=== PATIENT | female | born 1995 | race Caucasian/White ===

== ENCOUNTER 2019-07-31 11:23 | Inpatient (IN) | payer SELFPAY ==
[2019-07-31] VITALS (7 sets, daily range): BP systolic 114–120; BP diastolic 62–83; PULSE 103–135; RESP 18–20; TEMP 36.8–38.5; O2SAT 97–100; BMI 20.9
--- NOTE | ~2019-07-31 | CT_ITS ---
EXAMINATION: CT abdomen pelvis w con DATE: 07/31/2019 13:05 INDICATION: Lower abdominal pain, low back pain. Nausea, vomiting, fever and chills TECHNIQUE: Computed tomography (CT) of the abdomen and pelvis was performed with 100 cc Omnipaque 350 intravenous contrast. Automated exposure control and iterative reconstruction technique were employe d. Exam dose: 211.73 mGy-cm total exam DLP. COMPARISON: None. FINDINGS: Probable calcified right and left lower lobe pulmonary granulomas. No infiltrate or consolidation in the lower lung zones. Normal heart size. No pericardial or pleural effusion. The liver, gallbladder, bile ducts, spleen, pancreas, pancreatic duct, and adrenal glands are unremar kable. There is patchy inhomogeneous contrast enhancement of the kidneys, particularly on the right, as well as right perinephric stranding and thickening of the right pararenal fascia suggesting possible pyel onephritis, primarily on the right. There is also some asymmetric thickening of the wall of the right renal pelvis and right ureter. Correlation with white blood cell count urinalysis is recommended. Normal caliber of the abdominal aorta. No intraperitoneal or retroperitoneal or pelvic mass lesion or adenopathy or ascites. The urinary bladder, uterus and adnexal areas appear unremarkable. There is a prominent amount of fecal material within the colon. No bowel obstruction or intraperitone al free air. Very small fat-containing umbilical hernia. L4 limbus vertebra. No suspicious osteolytic or osteoblastic lesions are noted. IMPRESSION: Bilateral pyelonephritis is suggested, primarily on the right Reviewed, dictated and finalized at [facility]. Reviewed, dictated and finalized at [facility].
--- NOTE | 2019-07-31 12:15 | ECG_ITS ---
Measurements Intervals [place] Rate: 103 P: 68 VA: 169 QRS: 91 QRSD: 100 T: 55 QT: 333 QTc: 437 Interpretive Statements SINUS TACHYCARDIA DELAYED PRECORDIAL R/S TRANSITION BORDERLINE T WAVE ABNORMALITY- ANTERIOR LEADS ABNORMAL ECG Electronically Signed On 07-31-2019 13:09:36 CDT by Arvind Painter D.O.
[2019-07-31 12:20] LABS: Add Urine Microscopic? YES; Appearance Urine Cloudy (Clear); Bilirubin Urine 1+ (Negative); Blood Urine 3+ (Negative); Color Urine Yellow (Yellow); Glucose Urine UA Negative (Negative); Ketones Urine Trace (Negative); Leukocyte Esterase Ur 2+ LEU/UL (Negative); Nitrate Urine Positive (Negative); Protein Urine 2+ (Negative); Specific Grav Ur >= 1.030 (1.010-1.020); Urobilinogen Urine 0.2 mg/dL (0.2-1.0)
[2019-07-31] MEDS: SODIUM CHLORIDE 0.9% IV 1,000 ML 999 ML IV CONT (12:23)
[2019-07-31 12:24] LABS: Pregnancy On Board Control Negative; Specific Gravity Ur > 1.030 (1.010-1.035); Urine Pregnancy Test Negative
[2019-07-31 12:26] LABS: Bacteria Urine 2+ /hpf; Mucus Urine Moderate /lpf; Squamous Epithelial Cell Urine Moderate /hpf (Few); WBC Urine 21-30 /hpf (0-3)
[2019-07-31] MEDS: MORPHINE SULFATE 2 MG/ML INJ IV PUSH ×3 (12:27→21:45)
[2019-07-31] MEDS: ONDANSETRON INJ 4 MG/2 ML VIAL IV PUSH ×2 (12:28→16:01)
[2019-07-31 12:36] LABS: Basophils Absolute Auto 0.03 K/mm3 (0.00-0.10); Basophils Percent Auto 0.2 % (0.0-1.0); Eosinophils Absolute Auto 0.01 K/mm3 (0.02-0.50); Eosinophils Percent Auto 0.1 % (1.0-6.0); Hemoglobin 12.7 g/dL (12.0-15.0); Immature Granulocyte Absolute 0.08 K/mm3 (0.00-0.00); Immature Granulocyte Percent A 0.5 % (0.0-0.0); Lymphocytes Absolute Auto 0.45 K/mm3 (1.10-4.50); Lymphocytes Percent Auto 2.7 % (18.0-42.0); Mean Corpuscular HGB Conc 33.4 g/dL (32.0-36.0); Mean Corpuscular Hemoglobin 29.9 pg (27.0-31.0); Mean Corpuscular Volume 89.4 fL (78.0-102.0); Monocytes Percent Auto 7.9 % (2.0-11.0); Neutrophils Absolute Auto 14.6 K/mm3 (1.7-7.2); Neutrophils Percent Auto 88.6 % (50.0-70.0); Platelet Count Result 229 K/mm3 (150-420); Red Blood Count 4.25 M/mm3 (4.20-5.40); Red Cell Distribution Width 13.2 % (11.6-14.4); White Blood Count 16.5 K/mm3 (4.8-10.8)
[2019-07-31 12:50] LABS: Alanine Aminotransferase 13 U/L (14-59); Albumin Level 3.3 g/dL (3.4-5.0); Alkaline Phosphatase 66 U/L (46-116); Aspartate Amino Transferase 14 U/L (15-37); Bilirubin,Total 0.6 mg/dL (0.00-1.00); Blood Urea Nitrogen 9 mg/dL (7-18); Calcium 8.4 mg/dL (8.5-10.1); Carbon Dioxide 23 mmol/L (21-32); Chloride 102 mmol/L (98-108); Estimated Glomerular Filt Rate > 60; Glucose 135 mg/dL (70-99); Lipase 48 U/L (73-393); Osmolality Calculated 284 mOsm/kg (285-295); Sodium 137 mmol/L (136-145); Total Protein 7.1 g/dL (6.4-8.2)
[2019-07-31 13:03] LABS: Lactic Acid Reflex 1.7 mmol/L (0.4-2.0)
[2019-07-31] MEDS: KETOROLAC 30 MG/ML VIAL (*BKC) IV PUSH (13:14)
[2019-07-31] MEDS: KCL 20 MEQ/SW 100 ML 100 ML 50 MEQ IVPB (13:14)
--- NOTE | 2019-07-31 13:19 | PC.NURSE ---
2ND LITER NS STARTED AND INFUSING WITH [facility]
--- NOTE | 2019-07-31 13:48 | PC.NURSE ---
OBDULIO PAUSED WHILE [facility]ICE
--- NOTE | 2019-07-31 14:18 | ED.ABDPAIN ---
HPI - Abdominal Pain General Chief Complaint: Abdominal Pain Stated Complaint: Pain back Pain R side up throuh Abd Constipated Source: patient Mode of arrival: ambulatory Limitations: no limitations History of Present Illness HPI narrative: This is a 23 year female that presents with some right lower quadrant pain and right flank pain with radiation into her suprapubic area with dysuria, currently no hematuria does have a low-grade fever and chills with nausea no vomiting no diarrhea constipation has a history of UTIs and has been having symptoms over the last couple of days which have got worse over the last few hours patient is diaphoretic vital signs are stable. MD elicited complaint: abdominal pain and flank pain Pertinent past history: past UTI Onset (ago): day(s) Pain Consistency: constant Location: RLQ, R flank and suprapubic Severity: severe Pain scale (0-10): 10 Quality: stabbing and dull Radiation: RLQ and R flank Migration to: RLQ and suprapubic Exacerbating factors: nothing Relieving factors: nothing Associated symptoms: nausea, fever and chills Related Data Home Medications Medication Instructions Recorded Confirmed No Home Medications 07/31/19 07/31/19 Allergies Allergy/AdvReac Type Severity Reaction Status Date / Time No Known Allergies Allergy Verified 07/31/19 13:03 Review of Systems Review of Systems: All systems reviewed & are unremarkable except as noted in HPI and below PMFSH Past Medical History Medical History UTI (urinary tract infection) Exam Const: General: no acute distress and alert Orientation/consciousness: patient oriented x3 HENMT: Head: normal to inspection Face and sinus: normal facial exam Eyes: Conjunctivae: conjunctivae normal Pupils: Equal, round and reactive pupils present Neck: Neck: normal visual inspection and no lymphadenopathy Chest: Chest palpation & inspection: normal inspection of the chest Resp: Effort & Inspection: normal respiratory effort Auscultation: clear to auscultation bilaterally Cardio: Rate: regular rate Rhythm: regular rhythm GI: GI Palp: Yes Soft to palpation and Yes Tenderness to palpation present (GI) Percussion: Yes normal to percussion : General: Yes bladder normal to palpation and Yes CVA tenderness Urinary Catheter: Urinary Catheter: patent and draining Back/Spine/Pelvis: Back: CVA tenderness Skin: General skin exam: normal color Rashes: no rashes Neuro: General: patient oriented x3 Extrem: General: normal to inspection Psych: Mental Status: mental status grossly normal Course Course Emergency Course: Reassessment of patient, after receiving Toradol patient is resting more comfortably currently pain level is reduced down to about a 3 to 4/10 currently no nausea or vomiting and flank pain has eased considerably patient appears and feels more comfortable. Vital Signs Vital signs: Vital Signs Temperature 37.4 C 07/31/19 12:16 Pulse Rate 135 H 07/31/19 12:16 Respiratory Rate 07/31/19 12:16 Blood Pressure 120/83 07/31/19 12:16 Pulse Oximetry 97 07/31/19 12:16 Temperature 37.4 C 07/31/19 12:16 Pulse Rate 106 H 07/31/19 13:19 Respiratory Rate 07/31/19 12:16 Blood Pressure 120/83 07/31/19 12:16 Pulse Oximetry 99 07/31/19 13:19 MDM - Abdominal Pain Lab Data Result diagrams: 07/31/19 12:31 07/31/19 12:31 Labs: Lab Results 07/31/19 07/31/19 07/31/19 Range/Units 12:08 12:08 12:31 WBC 16.5 H (4.8-10.8) K/mm3 RBC 4.25 (4.20-5.40) M/mm3 Hgb 12.7 (12.0-15.0) g/dL Hct 38.0 (35.0-49.0) % MCV 89.4 (78.0-102.0) fL MCH 29.9 (27.0-31.0) pg MCHC 33.4 (32.0-36.0) g/dL RDW 13.2 (11.6-14.4) % Plt Count 229 (150-420) K/mm3 MPV 11.0 (9.2-11.8) fl Immature Gran % (Auto) 0.5 H (0.0-0.0) % Neut % (Auto) 88.6 H (50.0-70.0) % Lymph %
--- NOTE | 2019-07-31 15:11 | PC.NURSE ---
Patient refused JAQUI cruz.
[2019-07-31] MEDS: SODIUM CHLORIDE 0.9% IV 1,000 ML 100 ML IV CONT ×2 (15:14→22:57)
[2019-07-31] MEDS: ACETAMINOPHEN 325 MG TABLET 650 MG PO ×2 (16:01→19:19)
--- NOTE | 2019-07-31 19:15 | PC.NURSE ---
pt vital signs obtained and found to have temp of 101.3, turning and beading machine operator notified and requested permission to give tylenol 45 min early
--- NOTE | 2019-07-31 19:48 | PC.NURSE ---
notified that patient was running a temp 101 and her next dose of Tylenol wasn't due for another 45 minutes. MD stated to go ahead and give the Tylenol now.
--- NOTE | 2019-07-31 20:15 | PC.NURSE ---
pt resting in bed watching tv, states she is not cold anymore and believes her fever has broke, temp of 99.6 now, denies any other needs at this time.
[2019-07-31] MEDS: TRAZODONE HCL 50 MG TABLET 25 MG PO (21:43)
--- NOTE | 2019-07-31 21:57 | PC.NURSE ---
pt resting in bed watching tv, reported pain in lower abd, medication given see MAR, denies any other needs at this time.
--- NOTE | 2019-07-31 22:27 | PC.NURSE ---
pt resting in bed talking on phone, reports improvement in pain, denies any needs at this time
[2019-08-01] VITALS (11 sets, daily range): BP systolic 92–115; BP diastolic 50–83; PULSE 82–116; RESP 18–20; TEMP 36.4–39.4; O2SAT 97–100
--- NOTE | 2019-08-01 01:52 | PC.NURSE ---
pt reports vomiting, medication given, temp obtained 103, charge coordinator aware, medication given
[2019-08-01] MEDS: ONDANSETRON INJ 4 MG/2 ML VIAL IV PUSH ×3 (01:53→18:06)
[2019-08-01] MEDS: ACETAMINOPHEN 325 MG TABLET 650 MG PO ×3 (02:01→18:07)
--- NOTE | 2019-08-01 03:18 | PC.NURSE ---
pt sleeping, respirations even and regular, no evidence of distress noted
--- NOTE | 2019-08-01 05:20 | PC.NURSE ---
pt resting in bed, no evidence of distress noted at this time.
[2019-08-01 05:43] LABS: Basophils Absolute Auto 0.03 K/mm3 (0.00-0.10); Basophils Percent Auto 0.2 % (0.0-1.0); Hematocrit 34.4 % (35.0-49.0); Hemoglobin 11.4 g/dL (12.0-15.0); Immature Granulocyte Absolute 0.15 K/mm3 (0.00-0.00); Lymphocytes Absolute Auto 0.73 K/mm3 (1.10-4.50); Lymphocytes Percent Auto 4.8 % (18.0-42.0); Mean Corpuscular HGB Conc 33.1 g/dL (32.0-36.0); Mean Corpuscular Hemoglobin 30.2 pg (27.0-31.0); Mean Platelet Volume 11.2 fl (9.2-11.8); Monocytes Absolute Auto 1.44 K/mm3 (0.10-0.90); Monocytes Percent Auto 9.5 % (2.0-11.0); Neutrophils Absolute Auto 12.8 K/mm3 (1.7-7.2); Neutrophils Percent Auto 84.5 % (50.0-70.0); Platelet Count Result 181 K/mm3 (150-420); Red Blood Count 3.78 M/mm3 (4.20-5.40); Red Cell Distribution Width 13.7 % (11.6-14.4); White Blood Count 15.2 K/mm3 (4.8-10.8)
[2019-08-01 05:59] LABS: Alanine Aminotransferase 16 U/L (14-59); Albumin Level 2.5 g/dL (3.4-5.0); Alkaline Phosphatase 60 U/L (46-116); Anion Gap 14.4 mmol/L (7-16); Aspartate Amino Transferase 14 U/L (15-37); Bilirubin,Total 0.5 mg/dL (0.00-1.00); Blood Urea Nitrogen 8 mg/dL (7-18); Calcium 7.6 mg/dL (8.5-10.1); Carbon Dioxide 23 mmol/L (21-32); Chloride 105 mmol/L (98-108); Estimated CRCL calculation 96 ml/min; Estimated Glomerular Filt Rate > 60; Glucose 117 mg/dL (70-99); Magnesium 1.4 mg/dL (1.8-2.4); Osmolality Calculated 287 mOsm/kg (285-295); Potassium 3.4 mmol/L (3.5-5.1); Sodium 139 mmol/L (136-145); Total Protein 5.9 g/dL (6.4-8.2)
[2019-08-01 06:02] LABS: Lactic Acid Reflex 1.2 mmol/L (0.4-2.0)
[2019-08-01] MEDS: MORPHINE SULFATE 2 MG/ML INJ IV PUSH ×4 (08:49→22:46)
[2019-08-01] MEDS: SODIUM CHLORIDE 0.9% IV 1,000 ML 100 ML IV CONT ×2 (08:58→20:06)
[2019-08-01] MEDS: MAGNESIUM SULF 2 GM/WATER 50ML 2 GM/50 ML BAG IVPB (09:18)
--- NOTE | 2019-08-01 10:43 | PM.IMHP ---
H&P: HPI History of Present Illness Chief complaint: pyelonephritis <VERO Pan - Last Filed: 08/01/19 11:21> Narrative: Shi Tovar is a 23 year old female that presented to the ED with right upper quadrant pain and right flank pain. Patient has a past medical history of UTI. According to the patient a couple of weeks ago she developed right flank pain which resolved with drinking plenty of water with cranberry juice. Two days ago she developed the same symptoms that worsen. According to patient yesterday her abdominal and flank pain was so bad that she could not walk she also reported a subjective fever with chills , nausea and a decreased appetite. She did not take anything at home for her symptoms. At that time she asked her mother to transport her to the ED. On admission her her vitals were 120/83, 135, 20, 99.4, 97% on room air. While in the ED a CT was completed which indicated pyelonephritis, she is receiving Rocephin for treatment. her UA indicated nitrates, leukocytes, bacteria, protein. UA cultures pending. her potassium and magnesium were below normal limits she did receive supplements. she is being admitted for pyelonephritis and urosepsis. she continues to have abdominal pain and right flank pain. she also complains of nausea and at this time her pain is not controlled. she had been instructed to attempt to take her pain medication regularly. Patient denies SOB, CP, palpitation, extremity numbness, lightheadness, dizziness, constipation, diarrhea. <VERO Pan - Last Filed: 08/01/19 11:21> Review of Systems Constitutional: Constitutional: Reports chills, Reports fever(s), Reports lethargy and Reports poor appetite <VERO Pan - Last Filed: 08/01/19 11:21> Cardiovascular: Cardiovascular: Reports as per HPI, Reports no additional cardiovascular complaints, Denies syncope, Denies dyspnea, Denies dyspnea on exertion and Denies paroxysmal nocturnal dyspnea <VERO Pan - Last Filed: 08/01/19 11:21> Respiratory: Respiratory: Reports as per HPI, Denies cough, Denies dyspnea and Denies dyspnea on exertion <VERO Pan - Last Filed: 08/01/19 11:21> Gastrointestinal: Gastrointestinal: Reports as per HPI, Reports abdominal pain, Denies constipation, Denies diarrhea, Reports nausea and Denies vomiting <VERO Pan - Last Filed: 08/01/19 11:21> Genitourinary: Genitourinary: Denies hematuria, Reports dysuria, Reports pelvic pain, Denies urinary urgency and Denies vaginal pruritus <KIKE Pan - Last Filed: 08/01/19 11:21> Musculoskeletal: Musculoskeletal: Reports no additional musculoskeletal complaints, Denies muscle weakness, Denies numbness and Denies tingling <DHAVAL Pan - Last Filed: 08/01/19 11:21> Integumentary/Breasts: Skin/Breast: Reports system reviewed and no additional complaints, except as docu and Reports as per HPI <DHAVAL Pan - Last Filed: 08/01/19 11:21> Neurologic: Reports system reviewed and no additional complaints, except as documented, Reports as per HPI, Denies confusion, Denies vertigo, Denies dizziness and Denies syncope <[facility] - Last Filed: 08/01/19 11:21> Psychiatric: Psychiatric: Reports no additional psychiatric complaints, Reports anxiety ( due to pain) and Reports change in appetite ( decreased appetite) <KIKE Pan - Last Filed: 08/01/19 11:21> Endocrine: Endocrine: Reports fatigue <KIKE Pan - Last Filed: 08/01/19 11:21> Hematologic/Lymphatic: Hematologic/Lymphatic: Reports no additional hematologic/lymphatic complaints <KIKE Pan - Last Filed: 08/01/19 11:21> Allergic/Immunologic: Allergic/Immunologic: Reports no additional allergic/immunologic complaints <KIKE Pan - Last Filed: 08/01/19 11:21> PMF Past Medical History Medical History: Medical History (Reviewed 07/31/19 @ 14:2
[2019-08-01] MEDS: POTASSIUM CHLORIDE 20 MEQ PACKET (FOR LIQUID) 40 MEQ PO (10:48)
[2019-08-01] MEDS: IBUPROFEN 200 MG TABLET PO ×2 (11:36→21:19)
[2019-08-01] MEDS: TEMAZEPAM 15 MG CAPSULE PO (21:19)
--- NOTE | 2019-08-01 21:19 | PC.NURSE ---
Given Restoril 15mg po for complaints of insomnia and Ibuprofen 200mg po for complaints of migraine. Given popscicle to prevent nausea. Patient declined other food. Given Floor [employer] per request for use [employer].
--- NOTE | 2019-08-01 22:33 | PC.NURSE ---
States pain is coming back points to epigastric area, states radiates down to stomach, describes pain as mild pressure, tender to touch, and a 7 . Using cell phone, flacc score of 0
--- NOTE | 2019-08-01 23:16 | PC.NURSE ---
Boyfriend brought in belongings and given to patient.
--- NOTE | 2019-08-02 01:00 | PC.NURSE ---
Watching T.V.; no signs of pain or discomfort.
--- NOTE | 2019-08-02 02:15 | PC.NURSE ---
Sleeping at intervals; no signs of discomfort. No distress noted.
[2019-08-02 03:30] VITALS: BP 113/80; PULSE 76; RESP 20; TEMP 36.6; O2SAT 97
[2019-08-02 03:38] VITALS: BP 113/80; PULSE 76; RESP 20; TEMP 36.6; O2SAT 97
[2019-08-02] MEDS: MORPHINE SULFATE 2 MG/ML INJ IV PUSH (04:51)
--- NOTE | 2019-08-02 05:06 | PC.NURSE ---
Patient moaning, grimacing and thrashing around in bed, complains of pain of 8.5:Requesting Morphine and Zofran because she is also nauseated. MS 2mg IVP given for severe pain @0451; returned to room @0505, patient sleeping with no signs of pain, distress or nausea. Zofran held
[2019-08-02 05:43] LABS: Basophils Absolute Auto 0.02 K/mm3 (0.00-0.10); Basophils Percent Auto 0.2 % (0.0-1.0); Eosinophils Absolute Auto 0.07 K/mm3 (0.02-0.50); Eosinophils Percent Auto 0.8 % (1.0-6.0); Hematocrit 34.5 % (35.0-49.0); Hemoglobin 11.3 g/dL (12.0-15.0); Immature Granulocyte Absolute 0.05 K/mm3 (0.00-0.00); Immature Granulocyte Percent A 0.6 % (0.0-0.0); Lymphocytes Absolute Auto 1.28 K/mm3 (1.10-4.50); Lymphocytes Percent Auto 14.4 % (18.0-42.0); Mean Corpuscular HGB Conc 32.8 g/dL (32.0-36.0); Mean Corpuscular Hemoglobin 29.7 pg (27.0-31.0); Mean Corpuscular Volume 90.8 fL (78.0-102.0); Mean Platelet Volume 11.4 fl (9.2-11.8); Monocytes Absolute Auto 0.84 K/mm3 (0.10-0.90); Monocytes Percent Auto 9.5 % (2.0-11.0); Neutrophils Absolute Auto 6.6 K/mm3 (1.7-7.2); Neutrophils Percent Auto 74.5 % (50.0-70.0); Platelet Count Result 160 K/mm3 (150-420); Red Cell Distribution Width 13.9 % (11.6-14.4); White Blood Count 8.9 K/mm3 (4.8-10.8)
[2019-08-02] MEDS: SODIUM CHLORIDE 0.9% IV 1,000 ML 100 ML IV CONT (05:48)
[2019-08-02] MEDS: ONDANSETRON INJ 4 MG/2 ML VIAL IV PUSH (05:49)
[2019-08-02 05:58] LABS: Alanine Aminotransferase 20 U/L (14-59); Albumin Level 2.4 g/dL (3.4-5.0); Alkaline Phosphatase 65 U/L (46-116); Anion Gap 14.6 mmol/L (7-16); Aspartate Amino Transferase 18 U/L (15-37); Bilirubin,Total 0.4 mg/dL (0.00-1.00); Blood Urea Nitrogen 7 mg/dL (7-18); Calcium 7.7 mg/dL (8.5-10.1); Carbon Dioxide 24 mmol/L (21-32); Chloride 106 mmol/L (98-108); Estimated CRCL calculation 116 ml/min; Estimated Glomerular Filt Rate > 60; Glucose 89 mg/dL (70-99); Magnesium 1.7 mg/dL (1.8-2.4); Osmolality Calculated 289 mOsm/kg (285-295); Potassium 3.6 mmol/L (3.5-5.1); Sodium 141 mmol/L (136-145); Total Protein 5.8 g/dL (6.4-8.2)
[2019-08-02 06:01] LABS: Lactic Acid 0.8 mmol/L (0.4-2.0)
[2019-08-02 07:40] VITALS: BP 120/72; PULSE 109; RESP 18; TEMP 38.4; O2SAT 97
[2019-08-02 07:51] VITALS: TEMP 38.4
[2019-08-02] MEDS: ACETAMINOPHEN 325 MG TABLET 650 MG PO (07:51)
[2019-08-02 09:00] VITALS: TEMP 37
[2019-08-02] MEDS: MAGNESIUM SULF 2 GM/WATER 50ML 2 GM/50 ML BAG IVPB (09:42)
--- NOTE | 2019-08-02 11:25 | PC.NURSE ---
Patient resting quietly in bed. Denies any pain or needs at this time. Call light at side.
[2019-08-02 12:00] VITALS: BP 121/76; PULSE 82; RESP 16; TEMP 37.3; O2SAT 99
--- NOTE | 2019-08-02 12:09 | P.DS_ITS ---
DS: Admitting Diagnosis Admitting Diagnosis Admitting Diagnosis: Tubulo-interstitial nephritis, not specified as acute or chronic <[facility] - Last Filed: 08/02/19 14:18> DS: Discharge Diagnosis Discharge Diagnosis (1) Pyelonephritis: Code(s): N12 - Tubulo-interstitial nephritis, not specified as acute or chronic <Tomd[facility]DARREL [facility] - Last Filed: 08/02/19 14:18> Status: Acute <Luís LangDARREL [facility] - Last Filed: 08/02/19 14:18> Assessment and Plan: * secondary to untreated UTI * CT indicates pyelonephritis * urinalysis with nitrate, protein, leukocyte esterase, bacteria * receive 1 more dose of Rocephin before discharge * continue Tylenol and ibuprofen for temperature * continue pain medication on discharge as needed * UA culture with growth of E coli. sensitive to levofloxacin * he will discharged with levofloxacin 750 mg daily for 7 days . patient could not afford levofloxacin will start her on Cipro 500 mg b.i.d. for 7 days * WBCs within normal limits <Tomdanna RickeyDez Mendoza [facility] - Last Filed: 08/02/19 14:18> (2) UTI (urinary tract infection): Qualifiers: Urinary tract infection type: acute pyelonephritis Qualified Code(s): N10 - Acute pyelonephritis <Luís [facility]DARREL [facility] - Last Filed: 08/02/19 14:18> Code(s): N39.0 - Urinary tract infection, site not specified <Tomdanna Mendoza [facility] - Last Filed: 08/02/19 14:18> Status: Acute <Luís Mendoza [facility] - Last Filed: 08/02/19 14:18> Assessment and Plan: secondary to untreated UTI * CT indicates pyelonephritis * urinalysis with nitrate, protein, leukocyte esterase, bacteria * receive 1 more dose of Rocephin before discharge * continue Tylenol and ibuprofen for temperature * continue pain medication on discharge as needed * UA culture with growth of E coli. sensitive to levofloxacin.patient could not afford levofloxacin will start her on Cipro 500 mg b.i.d. for 7 days * he will discharged with levofloxacin 750 mg daily for 7 days * WBCs within normal limits <VERO Pan - Last Filed: 08/02/19 14:18> (3) Sepsis: Code(s): A41.9 - Sepsis, unspecified organism <VERO Pan - Last Filed: 08/02/19 14:18> Status: Acute <VERO Pan - Last Filed: 08/02/19 14:18> Assessment and Plan: * resolved * as evidence of hypotensive tachycardia and febrile * secondary to pyelonephritis * antibiotics started blood culture not collected <Luís Mendoza VERO - Last Filed: 08/02/19 14:18> (4) Nausea: Code(s): R11.0 - Nausea <Luís Mendoza VERO - Last Filed: 08/02/19 14:1 8> Status: Acute <Luís Mendoza VERO - Last Filed: 08/02/19 14:18> Assessment and Plan: * resolved * secondary to infection * continue Zofran on discharge <VERO Pan - Last Filed: 08/02/19 14:18> (5) Electrolyte imbalance: Code(s): E87.8 - Other disorders of electrolyte and fluid balance, not elsewhere classified <Luís Mendoza VERO - Last Filed: 08/02/19 14:18> Status: Acute <Luís Mendoza VERO - Last Filed: 08/02/19 14:18> Assessment and Plan: * magnesium below normal limits will be given supplement before david garnica * will give patient week ago magnesium on discharge and will follow-up with PCP afterwards <Luís LangDez Reji [facility] - Last Filed: 08/02/19 14:18> DS: Summary Hospital Course Hospital Course: H&P from 07/31 Narrative:
--- NOTE | 2019-08-02 12:09 | PM.DS ---
DS: Admitting Diagnosis Admitting Diagnosis Admitting Diagnosis: Tubulo-interstitial nephritis, not specified as acute or chronic <VERO Pan - Last Filed: 08/02/19 14:18> DS: Discharge Diagnosis Discharge Diagnosis (1) Pyelonephritis: Code(s): N12 - Tubulo-interstitial nephritis, not specified as acute or chronic <DHAVAL Pan - Last Filed: 08/02/19 14:18> Status: Acute <VERO Pan - Last Filed: 08/02/19 14:18> Assessment and Plan: secondary to untreated UTI CT indicates pyelonephritis urinalysis with nitrate, protein, leukocyte esterase, bacteria receive 1 more dose of Rocephin before discharge continue Tylenol and ibuprofen for temperature continue pain medication on discharge as needed UA culture with growth of E coli. sensitive to levofloxacin he will discharged with levofloxacin 750 mg daily for 7 days . patient could not afford levofloxacin will start her on Cipro 500 mg b.i.d. for 7 days WBCs within normal limits <DHAVAL Pan - Last Filed: 08/02/19 14:18> (2) UTI (urinary tract infection): Qualifiers: Urinary tract infection type: acute pyelonephritis Qualified Code(s): N10 - Acute pyelonephritis <DHAVAL Pan - Last Filed: 08/02/19 14:18> Code(s): N39.0 - Urinary tract infection, site not specified <VERO Pan - Last Filed: 08/02/19 14:18> Status: Acute <DHAVAL Pan - Last Filed: 08/02/19 14:18> Assessment and Plan: secondary to untreated UTI CT indicates pyelonephritis urinalysis with nitrate, protein, leukocyte esterase, bacteria receive 1 more dose of Rocephin before discharge continue Tylenol and ibuprofen for temperature continue pain medication on discharge as needed UA culture with growth of E coli. sensitive to levofloxacin.patient could not afford levofloxacin will start her on Cipro 500 mg b.i.d. for 7 days he will discharged with levofloxacin 750 mg daily for 7 days WBCs within normal limits <DHAVAL Pan - Last Filed: 08/02/19 14:18> (3) Sepsis: Code(s): A41.9 - Sepsis, unspecified organism <VERO Pan - Last Filed: 08/02/19 14:18> Status: Acute <VERO Pan - Last Filed: 08/02/19 14:18> Assessment and Plan: resolved as evidence of hypotensive tachycardia and febrile secondary to pyelonephritis antibiotics started blood culture not collected <VERO Pan - Last Filed: 08/02/19 14:18> (4) Nausea: Code(s): R11.0 - Nausea <VERO Pan - Last Filed: 08/02/19 14:18> Status: Acute <VERO Pan - Last Filed: 08/02/19 14:18> Assessment and Plan: resolved secondary to infection continue Zofran on discharge <VERO Pan - Last Filed: 08/02/19 14:18> (5) Electrolyte imbalance: Code(s): E87.8 - Other disorders of electrolyte and fluid balance, not elsewhere classified <VERO Pan - Last Filed: 08/02/19 14:18> Status: Acute <VERO Pan - Last Filed: 08/02/19 14:18> Assessment and Plan: magnesium below normal limits will be given supplement before discharge will give patient week ago magnesium on discharge and will follow-up with PCP afterwards <VERO Pan - Last Filed: 08/02/19 14:18> DS: Summary Hospital Course Hospital Course: H&P from 07/31 Narrative: Shi Tovar is a 23 year old female that presented to the ED with right upper quadrant pain and right flank pain. Patient has a past medical history of UTI. According to the patient a couple of weeks ago she developed right flank pain which resolved with drinking plenty of water with cranberry juice. Two days ago she developed the same symptoms that worsen. Ac
--- NOTE | 2019-08-02 14:20 | PC.NURSE ---
Patient sitting up in bed, dressed. Waiting for friend to pick her up. All bellongings gathered together. Reports no need at this time. Denies any pain.
--- NOTE | 2019-08-02 15:15 | PC.NURSE ---
Patients friend here to transport her home. All discharge instructions and education reviewed. Denies any questions. All belongings gathered and sent home with patient. This nurse accompanied patient to front door. Patient left via private vehicle with friend.
== END 2019-08-02 15:15 | disposition home or self-care (01) | DRG 720 ==
LOC: CHSED 14:32 → CHS2ND 14:33
PROVIDERS: Nurse Practitioner; Admitting Provider Emergency Medicine; Emergency Provider Emergency Medicine; Visit Provider Emergency Medicine
DX: A41.9 Sepsis, unspecified organism (principal); N10 Acute pyelonephritis; N39.0 Urinary tract infection, site not specified; E87.8 Other disorders of electrolyte and fluid balance, not elsewhere classified
CPT/HCPCS: 36415; 74177; 80053; 81001; 81025; 83605; 83690; 83735; 85025; 87077; 87086; 87088; 87186; 93005; 96361; 96365; 96366; 96375; 96376; 99284; 99285; A9270; G0378; G0379; J0696; J1885; J2270; J2405; J3475; J3480; J7030; Q9965

== ENCOUNTER 2020-09-20 16:05 | Emergency (ER) | payer SELFPAY ==
--- NOTE | 2020-09-20 16:10 | ED.URI ---
HPI - URI/Sore Throat General Chief Complaint: Unspecified Stated Complaint: possible strep Source: patient and RN notes reviewed Mode of arrival: ambulatory Limitations: no limitations History of Present Illness MD elicited complaint: fever and sore throat Onset (ago): day(s) (2) Consistency: constant Severity: moderate Able to tolerate fluids by mouth: Yes Exacerbating factors: swallowing Relieving factors: nothing Associated symptoms: fever and chills Treatments prior to arrival: none Related Data Home Medications Medication Instructions Recorded Confirmed No Home Medications 09/20/20 09/20/20 Allergies Allergy/AdvReac Type Severity Reaction Status Date / Time No Known Allergies Allergy Verified 07/31/19 13:03 Review of Systems Review of Systems: All systems reviewed & are unremarkable except as noted in HPI and below PMFSH Past Medical History Medical History (Updated 09/20/20 @ 16:45 by Jeremy Dominguez MD) UTI (urinary tract infection) Surgical History Surgical History (Updated 09/20/20 @ 16:20 by Jeremy Dominguez MD) No pertinent past surgical history Social History Social History Smoking status: Never smoker Alcohol intake: former Substance use: current Substance use type: marijuana Gender identity (if verbalized by the patient): Female Spiritual care concerns: No Exam Const: General: healthy appearing and no acute distress Nutritional Appearance: well nourished Orientation/consciousness: patient oriented x3 Other: Female nurse in room during examination. HENMT: Head: normal to inspection Ears: external ears normal General nose exam: Normal external nose present Face and sinus: normal facial exam Mouth: Yes moist mucous membranes and Yes Abnormal oral and palatal mucosa present erythematous, edematous and white patches Throat: uvula midline Discharge Plan Discharge Clinical Impression: Pharyngitis Qualifiers: Pharyngitis/tonsillitis etiology: unspecified etiology Qualified Code(s): J02.9 - Acute pharyngitis, unspecified Patient Disposition: Home, Self-Care Condition: Stable Instructions: Pharyngitis (ED) Additional Instructions: use Tylenol and/or Motrin to control fever. If there is a positive result for the additional test you will be notified. Prescriptions: No Action No Home Medications RF: 0 Follow-up/Referrals: UNKNOWN,DOCTOR [Primary Care Provider] - Time of Disposition: 16:44
[2020-09-20 16:22] VITALS: BP 110/60; PULSE 62; RESP 16; TEMP 36.6; O2SAT 98
[2020-09-20 16:52] VITALS: BP 108/60; PULSE 92; RESP 16; TEMP 36.4; O2SAT 98
== END 2020-09-20 16:53 | disposition home or self-care (01) ==
PROVIDERS: Emergency Provider Emergency Medicine
DX: J02.9 Acute pharyngitis, unspecified (principal)
CPT/HCPCS: 87081; 87880; 99282; 99283

== ENCOUNTER 2021-02-11 11:58 | Emergency (ER) | payer SELFPAY ==
--- NOTE | ~2021-02-11 | US_ITS ---
EXAMINATION: US OB <= 14 weeks fetus EXAM DATE: 02/11/2021 14:49 INDICATION: Threatened . 1st trimester. TECHNIQUE: Pelvic obstetrical transabdominal sonogram was performed by a technologist. There are mu ltiple grayscale and Doppler images available for interpretation. There are no earlier studies of th is gestation for comparison. FINDINGS: Uterus measures 9.5 x 7.2 x 8.3 cm. There is intrauterine gestation sac. There is a somewh at focal heterogeneous Cristiano region with smaller anechoic region centrally which could be an abno rmally shaped gestation sac. This region measures 3.7 x 2.1 x 4.5 cm. No viable pole is identif ied. Possible missed . The ovaries are morphologically normal. IMPRESSION: Heterogeneous endometrial region which could be missed . No viable miguel ntified. Consider one week follow-up ultrasound. Reviewed, dictated and finalized at location [facility]. [facility] IMPRESSION: Heterogeneous endometrial region which could be missed . N o viable identified. Consider one week follow-up ultrasound.
[2021-02-11 12:12] VITALS: BP 132/97; PULSE 86; RESP 16; TEMP 36.8; O2SAT 100
--- NOTE | 2021-02-11 12:24 | ED.PREGNANCY ---
HPI - General Chief complaint: OB/Uterine Contractions Stated complaint: vaginal bleeding + preg test, not bleeding now Time Seen by Provider: 02/11/21 12:25 Source: patient Mode of arrival: ambulatory Limitations: no limitations History of Present Illness HPI Narrative: 25-year-old female 8 weeks with LMP on 12/16/2020 presents to the ER -- 1 episode of vaginal bleeding this morning. The patient had an average size vaginal tampoon worth of bleeding. Subsequently she has not had any bleeding. No abdominal pain. -- Nausea. Onset (ago): minute(s) ( She had vaginal bleeding 1 episode when she got up this morning. No further bleeding.) Exacerbating factors: none Associated symptoms: nausea Related Data Home Medications Medication Instructions Recorded Confirmed No Home Medications 09/20/20 02/11/21 Allergies Allergy/AdvReac Type Severity Reaction Status Date / Time No Known Allergies Allergy Verified 02/11/21 12:20 Review of Systems Review of Systems: All systems reviewed & are unremarkable except as noted in HPI and below Constitutional: Constitutional: Reports as per HPI and Reports no additional constitutional complaints Eyes: Eyes: Reports as per HPI and Reports no additional eye complaints ENT: Reports system reviewed and no additional complaints, except as documented Cardiovascular: Cardiovascular: Reports as per HPI and Reports no additional cardiovascular complaints Respiratory: Respiratory: Reports as per HPI and Reports no additional respiratory complaints Gastrointestinal: Gastrointestinal: Reports as per HPI and Reports no additional gastrointestinal complaints Genitourinary: Genitourinary: Reports abnormal vaginal bleeding Comments: Vaginal bleeding in an 8 week patient. no abdominal pain. Musculoskeletal: Musculoskeletal: Reports no additional musculoskeletal complaints Integumentary/Breasts: Skin/Breast: Reports system reviewed and no additional complaints, except as docu Neurologic: Reports system reviewed and no additional complaints, except as documented Psychiatric: Psychiatric: Reports no additional psychiatric complaints Endocrine: Endocrine: Reports no additional endocrine complaints Hematologic/Lymphatic: Hematologic/Lymphatic: Reports no additional hematologic/lymphatic complaints Allergic/Immunologic: Allergic/Immunologic: Reports no additional allergic/immunologic complaints FOR[facility] Past Medical History Medical History UTI (urinary tract infection) Surgical History Surgical History No pertinent past surgical history Social History Social History Smoking status: Never smoker Alcohol intake: former Substance use: current Substance use type: marijuana Gender identity (if verbalized by the patient): Female Spiritual care concerns: No Exam Const: General: cooperative, healthy appearing, comfortable and anxious HENMT: Head: normal to inspection and No palpable skull fracture present Ears: hearing grossly normal bilaterally General nose exam: Normal external nose present and Normal nares present Face and sinus: normal facial exam Mouth: Yes Normal oral and palatal mucosa present Teeth and gingiva: dentition normal Throat: posterior oropharynx normal Eyes: General: appearance normal, both eyes and all related structures Visual Wiggins: normal visual wiggins by confrontation Pupils: Equal, round and reactive pupils present EOM: EOMs intact bilaterally Neck: Neck: normal visual inspection Thyroid: thyroid normal Chest: Chest palpation & inspection: normal inspection of the chest Resp: Effort & Inspection: normal respiratory effort and able to speak in complete sentences Auscultation: clear to auscultation bilaterally Cardio: Jugular venous distension: no JV
[2021-02-11 12:51] LABS: Appearance Urine Clear (Clear); Bilirubin Urine Negative (Negative); Color Urine Yellow (Yellow); Glucose Urine UA Negative (Negative); Ketones Urine Trace (Negative); Leukocyte Esterase Ur Trace (Negative); Nitrate Urine Negative (Negative); Protein Urine Negative (Negative); Urobilinogen Urine 0.2 mg/dL (0.2-1.0)
[2021-02-11 12:54] LABS: Basophils Absolute Auto 0.05 K/mm3 (0.00-0.10); Basophils Percent Auto 0.5 % (0.0-1.0); Eosinophils Absolute Auto 0.03 K/mm3 (0.02-0.50); Eosinophils Percent Auto 0.3 % (1.0-6.0); Hematocrit 42.2 % (35.0-49.0); Hemoglobin 14.2 g/dL (12.0-15.0); Immature Granulocyte Absolute 0.02 K/mm3 (0.00-0.00); Immature Granulocyte Percent A 0.2 % (0.0-0.0); Lymphocytes Absolute Auto 1.14 K/mm3 (1.10-4.50); Lymphocytes Percent Auto 11.9 % (18.0-42.0); Mean Corpuscular HGB Conc 33.6 g/dL (32.0-36.0); Mean Corpuscular Hemoglobin 30.8 pg (27.0-31.0); Mean Corpuscular Volume 91.5 fL (78.0-102.0); Mean Platelet Volume 11.2 fl (9.2-11.8); Monocytes Percent Auto 6.3 % (2.0-11.0); Neutrophils Absolute Auto 7.8 K/mm3 (1.7-7.2); Neutrophils Percent Auto 80.8 % (50.0-70.0); Platelet Count Result 252 K/mm3 (150-420); Red Blood Count 4.61 M/mm3 (4.20-5.40); Red Cell Distribution Width 12.5 % (11.6-14.4); White Blood Count 9.6 K/mm3 (4.8-10.8)
[2021-02-11 13:11] LABS: Add Urine Microscopic? YES; Bacteria Urine Trace /hpf; Blood Urine Trace-Intact (Negative); RBC Urine 0-2 /hpf (0-2); Squamous Epithelial Cell Urine Rare /hpf (Few); WBC Urine 0-3 /hpf (0-3)
[2021-02-11 13:33] LABS: Alanine Aminotransferase 17 U/L (14-59); Albumin Level 3.7 g/dL (3.4-5.0); Alkaline Phosphatase 50 U/L (46-116); Anion Gap 13 mmol/L (8-16); Aspartate Amino Transferase 18 U/L (15-37); Bilirubin,Total 0.4 mg/dL (0.00-1.00); Blood Urea Nitrogen 11 mg/dL (7-18); Calcium 8.9 mg/dL (8.5-10.1); Carbon Dioxide 23 mmol/L (21-32); Chloride 102 mmol/L (98-108); Estimated CRCL calculation 106 ml/min; Estimated Glomerular Filt Rate > 60; Glucose 93 mg/dL (70-99); Osmolality Calculated 285 mOsm/kg (285-295); Potassium 3.8 mmol/L (3.5-5.1); Sodium 138 mmol/L (136-145); Total Protein 7.5 g/dL (6.4-8.2)
[2021-02-11 14:01] VITALS: BP 124/77; PULSE 80; RESP 16; O2SAT 99
[2021-02-11 15:15] VITALS: BP 121/78; PULSE 90; RESP 16; O2SAT 99
== END 2021-02-11 15:28 | disposition home or self-care (01) ==
PROVIDERS: Emergency Provider Internal Medicine Critical Care Medicine
DX: O20.0 Threatened abortion (principal)
CPT/HCPCS: 36415; 76801; 80053; 81001; 84702; 85025; 86900; 86901; 99282; 99284

== ENCOUNTER 2021-08-29 17:07 | Emergency (ER) | payer OTHER, SELFPAY ==
[2021-08-29] VITALS (13 sets, daily range): BP systolic 112–125; BP diastolic 56–76; PULSE 77–127; RESP 18–24; TEMP 36.6–36.8; O2SAT 96–100
--- NOTE | 2021-08-29 17:28 | ED.ANXIETY ---
HPI - Anxiety General Chief Complaint: Unspecified Stated Complaint: upper back pain, chest pain, panic attack, vomitin Time Seen by Provider: 08/29/21 17:28 Source: patient and RN notes reviewed Mode of arrival: ambulatory Limitations: no limitations History of Present Illness complaint: anxiety Onset (ago): hour(s) (3.5) Symptoms: extremity numbness/tingling and muscle cramps Severity: severe Quality: constant Place: home History of similar episodes: Yes Provoking factors: emotional stress Relieving factors: nothing Associated symptoms: chest pain, shortness of breath, palpitations and nausea/vomiting Related Data Allergies Allergy/AdvReac Type Severity Reaction Status Date / Time No Known Allergies Allergy Verified 08/29/21 17:36 Review of Systems Constitutional: Constitutional: Reports chills Respiratory: Respiratory: Reports cough Genitourinary: Genitourinary: Reports nocturia and Reports dysuria PMFSH Past Medical History Medical History UTI (urinary tract infection) Surgical History Surgical History No pertinent past surgical history Social History Social History Smoking status: Never smoker Alcohol intake: former Substance use: current Substance use type: marijuana Gender identity (if verbalized by the patient): Female Spiritual care concerns: No Exam Const: General: no acute distress and ill appearing acutely Nutritional Appearance: well nourished Orientation/consciousness: patient oriented x3 Limitations: no limitations HENMT: Head: normal to inspection Ears: external ears normal General nose exam: Normal external nose present Face and sinus: normal facial exam Eyes: Conjunctivae: conjunctivae normal Pupils: Equal, round and reactive pupils present EOM: EOMs intact bilaterally Neck: Neck: normal visual inspection Resp: Effort & Inspection: normal respiratory effort Auscultation: clear to auscultation bilaterally Cardio: Rate: tachycardic Rhythm: regular rhythm GI: GI Palp: Yes Soft to palpation and No Tenderness to palpation present (GI) Auscultation: normal bowel sounds Back/Spine/Pelvis: Cervical Spine: cervical ROM normal Thoracic/Lumbar Spine: thoraco-lumbar ROM normal Skin: General skin exam: normal color Rashes: no rashes Wounds: no wounds Neuro: General: patient oriented x3, moves all extremities, no focal motor deficits and CN's II-XI intact bilaterally Speech: normal speech Gait exam (Neuro): Normal gait present Extrem: General: normal to inspection and no clubbing, cyanosis or edema Psych: Appearance: grossly normal Mental Status: mental status grossly normal Affect: Anxious affect present Attitude: cooperative Thought process: Normal thought process present Thought content: Yes Normal thought content present Course Vital Signs Vital signs: Vital Signs Temperature 36.8 C 08/29/21 17:31 Pulse Rate 123 H 08/29/21 17:31 Respiratory Rate 23 H 08/29/21 17:31 Blood Pressure 119/76 08/29/21 17:31 Pulse Oximetry 100 08/29/21 17:31 Oxygen Delivery Room Air 08/29/21 17:31 Temperature 36.6 C 08/29/21 19:44 Pulse Rate 77 08/29/21 19:44 Respiratory Rate 18 08/29/21 19:44 Blood Pressure 113/56 L 08/29/21 19:44 Pulse Oximetry 97 08/29/21 19:44 Oxygen Delivery Room Air 08/29/21 19:01 MDM - Anxiety Lab Data Result diagrams: 08/29/21 17:52 08/29/21 17:52 Labs: Lab Results 08/29/21 08/29/21 08/29/21 Range/Units 17:52 17:52 17:52 WBC 9.8 (4.8-10.8) K/mm3 RBC 4.93 (4.20-5.40) M/mm3 Hgb 15.2 H (12.0-15.0) g/dL Hct 45.4 (35.0-49.0) % MCV 92.1 (78.0-102.0) fL MCH 30.8 (27.0-31.0) pg MCHC 33.5 (32.0-36.0) g/dL RDW 13.2 (11.6-14.4) % Plt Count 270 (150-420) K/mm3 MPV 1
[2021-08-29 17:56] LABS: Basophils Absolute Auto 0.04 K/mm3 (0.00-0.10); Basophils Percent Auto 0.4 % (0.0-1.0); Eosinophils Absolute Auto 0.02 K/mm3 (0.02-0.50); Eosinophils Percent Auto 0.2 % (1.0-6.0); Hematocrit 45.4 % (35.0-49.0); Hemoglobin 15.2 g/dL (12.0-15.0); Immature Granulocyte Absolute 0.04 K/mm3 (0.00-0.00); Immature Granulocyte Percent A 0.4 % (0.0-0.0); Lymphocytes Absolute Auto 0.25 K/mm3 (1.10-4.50); Lymphocytes Percent Auto 2.6 % (18.0-42.0); Mean Corpuscular HGB Conc 33.5 g/dL (32.0-36.0); Mean Corpuscular Hemoglobin 30.8 pg (27.0-31.0); Mean Corpuscular Volume 92.1 fL (78.0-102.0); Mean Platelet Volume 10.7 fl (9.2-11.8); Monocytes Absolute Auto 0.37 K/mm3 (0.10-0.90); Monocytes Percent Auto 3.8 % (2.0-11.0); Neutrophils Absolute Auto 9.1 K/mm3 (1.7-7.2); Neutrophils Percent Auto 92.6 % (50.0-70.0); Platelet Count Result 270 K/mm3 (150-420); Red Blood Count 4.93 M/mm3 (4.20-5.40); Red Cell Distribution Width 13.2 % (11.6-14.4); White Blood Count 9.8 K/mm3 (4.8-10.8)
[2021-08-29 18:01] LABS: Add Urine Microscopic? YES; Appearance Urine Clear (Clear); Bilirubin Urine Negative (Negative); Blood Urine Negative (Negative); Color Urine Yellow (Yellow); Glucose Urine UA Negative (Negative); Ketones Urine 2+ (Negative); Leukocyte Esterase Ur Negative LEU/UL (Negative); Nitrate Urine Negative (Negative); Protein Urine Negative (Negative); Urobilinogen Urine 0.2 mg/dL (0.2-1.0); pH Urine 8.5 (5.0-8.0)
[2021-08-29 18:03] LABS: Amphetamine Screen Urine Negative (Negative); Barbiturate Screen Urine Negative (Negative); Benzodiazepines Screen Urine Negative (Negative); Cannabinoid Screen Urine Positive (Negative); Cocaine Screen Urine Negative (Negative); Methadone Screen Urine Negative (Negative); Opiate Screen Urine Negative (Negative); Phencyclidine Screen Urine Negative (Negative)
[2021-08-29 18:08] LABS: Bacteria Urine Trace /hpf; RBC Urine 0-2 /hpf (0-2); Squamous Epithelial Cell Urine Moderate /hpf (Few)
[2021-08-29 18:10] LABS: Alanine Aminotransferase 23 U/L (14-59); Albumin Level 4.2 g/dL (3.4-5.0); Alkaline Phosphatase 64 U/L (46-116); Anion Gap 12 mmol/L (8-16); Aspartate Amino Transferase 20 U/L (15-37); Bilirubin,Total 1.3 mg/dL (0.00-1.00); Blood Urea Nitrogen 12 mg/dL (7-18); Carbon Dioxide 21 mmol/L (21-32); Chloride 104 mmol/L (98-108); Glucose 108 mg/dL (70-99); Osmolality Calculated 284 mOsm/kg (285-295); Potassium 2.9 mmol/L (3.5-5.1); Sodium 137 mmol/L (136-145); Total Protein 7.4 g/dL (6.4-8.2)
[2021-08-29 18:12] LABS: SPREG INTERNAL CONTROL Positive; Serum Qual hCG Negative
[2021-08-29] MEDS: ONDANSETRON HCL ODT 4 MG TABLET PO (18:17)
[2021-08-29 18:23] LABS: Calcium 8.7 mg/dL (8.5-10.1); Estimated CRCL calculation 77 ml/min; Estimated Glomerular Filt Rate > 60; Magnesium 1.6 mg/dL (1.8-2.4)
[2021-08-29 18:24] LABS: CRP < 0.2 mg/dL (0.0-0.9)
[2021-08-29] MEDS: LORazepam (*CRX) 0.5 MG TABLET PO (18:37)
[2021-08-29] MEDS: POTASSIUM BICARBONATE 25 MEQ TABEF 50 MEQ PO (19:19)
== END 2021-08-29 20:04 | disposition home or self-care (01) ==
PROVIDERS: Emergency Provider Emergency Medicine
DX: F41.9 Anxiety disorder, unspecified (principal); E87.6 Hypokalemia; N30.00 Acute cystitis without hematuria
CPT/HCPCS: 36415; 80053; 80307; 81001; 83735; 84703; 85025; 86140; 99283; A9270

== ENCOUNTER 2023-12-21 21:40 | Emergency (ER) | payer OTHER, SELFPAY ==
[2023-12-21 21:41] VITALS: BP 124/94; PULSE 85; RESP 18; TEMP 37.1; O2SAT 99
--- NOTE | 2023-12-21 22:00 | PC.NURSE ---
Pt signed refusal for HIV testing stating she had it done at her OB office.
[2023-12-21 22:14] LABS: Add Urine Microscopic? NO; Appearance Urine Clear (Clear); Bilirubin Urine Negative (Negative); Blood Urine Negative (Negative); Color Urine Light Yellow (Yellow); Glucose Urine UA Negative (Negative); Ketones Urine 1+ (Negative); Leukocyte Esterase Ur Negative LEU/UL (Negative); Nitrate Urine Negative (Negative); Protein Urine Negative (Negative); Urobilinogen Urine 0.2 mg/dL (0.2-1.0)
--- NOTE | 2023-12-21 22:36 | ED.GENADULT ---
HPI - General Adult General Chief complaint: OB/Uterine Contractions Stated complaint: spotting with Source: patient and family Mode of arrival: ambulatory Limitations: no limitations History of Present Illness HPI narrative: 28-year-old 2 para 0 AB1 previously well voided tonight and had a spot of blood when she wiped. Two weeks ago she had a urinary tract infection that only had urinary frequency has symptoms she is placed on Bactrim and finished this. Since she has been fine as far as her voiding and stooling denies any other bleeding or bruising dizziness or lightheadedness abdominal pain or any pain anywhere cough fever sore throat runny nose swelling lumps or bumps or any other complaints. Related Data Home Medications Medication Instructions Recorded Confirmed vit#24-iron amino acid 1 tablet PO DAILY 12/21/23 12/21/23 chelat-folic acid 30 mg-975 mcg tablet Allergies Allergy/AdvReac Type Severity Reaction Status Date / Time No Known Allergies Allergy Verified 08/29/21 17:36 Review of Systems Review of Systems: All systems reviewed & are unremarkable except as noted in HPI and below PMFSH Past Medical History Medical History UTI (urinary tract infection) Surgical History Surgical History No pertinent past surgical history Social History Social History Smoking status: Never smoker Alcohol intake: former Substance use: current Substance use type: marijuana Gender identity (if verbalized by the patient): Female Spiritual care concerns: No Exam Narrative: White female Pleasant patient with no apparent distress.? Head normocephalic, atraumatic.? Eyes conjunctiva pink sclera nonicteric.? Extraocular movements are intact.? Ears externally normal.? Oropharynx is clear with moist mucous membranes without exudates.? Neck is supple nontender no lymphadenopathy.? Back is nontender.? Lungs are clear.? Heart is regular rate and rhythm without murmurs gallops or rubs.? Chest wall nontender. Abdomen is soft and nontender no hepatosplenomegaly or masses no CVA tenderness no abdominal bruits.? Gravid uterus 2 cm below the umbilicus consistent with 18 week intrauterine . heart tones 145-150 by Doppler. Extremities no cyanosis clubbing or edema.? Skin is warm and dry without rashes or lesions.? Neurological patient is alert and oriented x4.? Motor and sensory grossly intact.? Gait is normal. Course Vital Signs Vital signs: Vital Signs Temperature 37.1 C 12/21/23 21:41 Pulse Rate 85 12/21/23 21:41 Respiratory Rate 18 12/21/23 21:41 Blood Pressure 124/94 H 12/21/23 21:41 Pulse Oximetry 99 12/21/23 21:41 Oxygen Delivery Room Air 12/21/23 21:41 Temperature 36.6 C 12/21/23 22:48 Pulse Rate 83 12/21/23 22:48 Respiratory Rate 18 12/21/23 22:48 Blood Pressure 130/79 12/21/23 22:48 Pulse Oximetry 100 12/21/23 22:48 Oxygen Delivery Room Air 12/21/23 22:48 Medical Decision Making MDM Narrative Medical decision making narrative: 3 Patient was placed in Room # 3 History and physical was performed. +1 ketones on urinalysis otherwise was normal heart tones 145-150 per Doppler urinalysis unremarkable Independent Historian: External Source Review: Differential Dx includes but not limited to: UTI placental abruption with care Medications were Reviewed: Independently Interpreted by me: Meds, treatment, ED course: home meds reviewed Social Situation Impacting Patients Care: previous miscarriage Shared decision Making: evaluation was discussed with the patient and her all questions were asked and answered and they agreed with the plan. She had follow-up with her precision honer and return if she got worse or
[2023-12-21 22:48] VITALS: BP 130/79; PULSE 83; RESP 18; TEMP 36.6; O2SAT 100
== END 2023-12-21 22:53 | disposition home or self-care (01) ==
PROVIDERS: Emergency Provider Emergency Medicine
DX: O20.0 Threatened abortion (principal); Z3A.18 18 weeks gestation of pregnancy
CPT/HCPCS: 81003; 99283

== ENCOUNTER 2024-04-11 01:35 | Observation (INO) | payer OTHER, SELFPAY ==
[2024-04-11] VITALS (14 sets, daily range): BP systolic 110–138; BP diastolic 72–97; PULSE 62–97; O2SAT 95–99; BMI 25.7
--- OUTSIDE RECORDS SUMMARY | 2024-04-11 01:47 | XMS_ITS | Data Portability ---
Author Organization [facility] Address [address] [place] [address] [place] [address] Assessment Encounter Date Assessment Date Assessment LastModified by Organization Details LastModified Time 03/11/2024 03/11/2024 Patient is ___weeks . Discussed plan. Not available 03/11/2024 12:53:24 03/27/2024 03/27/2024 Patient is ___weeks . Discussed plan. Not available 03/27/2024 11:07:28 04/08/2024 04/08/2024 Patient is ___weeks . Discussed plan. Not available 04/08/2024 09:54:49 Plan of Treatment Reminders Order Date Submit Date Provider Last Modified By Organization Details Last Modified Time Details Appointments U/S OB > 14 WKS 2024 08:30A M ULTRASOUND Not available Not available Not available OB ROUTINE 2024 09:00A Silvia SINGH MD Not available Not available Not available Lab urinaly sis, dipstic k 2024 025 [address], [address], [place], [address], 03/27/2024 11:13:07 Referral None recorde d. Procedures None recorde d. Surgeries None recorde d. Imaging US, obstetr ic, follow- up 2023 024 [email or web address] [facility], [address], [place], [address], 02/28/2024 20:13:52 US, obstetr ic, follow- up 2024 025 [email or web address] [facility], [address], [address], [place], [address], 03/27/2024 20:17:34 Medication Orders Macrobi d 100 mg capsule 2024 025 DAILY [facility] [address] [place], [address], 03/27/2024 11:34:17 Patient TargetsNo targets recorded. Patient InstructionsNo instructions recorded. Reason for Referral None Reported. Results Created Date Observation Date Name Description Value Unit Range Abnormal Flag Note LastModifiedBy Organization Detail LastModifiedTime 02/28/20 24 02/28/2024 GTT - GESTA KAMINI Leandra DELANEY N, ACOG OB glucose, 1 hour screen 92 mg/dL 70-135 Not Available [facility] (Lab) [address], [place], [address], 02/29/2024 12:26:36 02/28/20 24 02/28/2024 HIV 1/2 ANTIG EN/AN TIBOD Y, REFLE X CONFI RMATI ON HIV antigen/anti body Nonrea ctive nonrea ctive HIV-1 antig en and HIV-1 /HIV- 2 antib odies were not detec yoko. No labor atory evide nce of HIV infec tion. Not Available [facility] (Lab) [address], [place], [address], 02/29/2024 12:26:37 02/28/20 24 02/28/2024 HEMAT OCRIT (HCT) HCT 38.1 % (based on docume nted legal sex) 34.0-4 5.0 Not Available [facility] (Lab) [address], [place], [address], 02/29/2024 12:26:37 02/28/20 24 02/28/2024 HEMOG LOBIN (HGB) HGB 12.7 g/dL (based on docume nted legal sex) 11.6-1 5.4 Not Available [facility] (Lab) [address], [place], [address], 02/29/2024 12:26:37 02/28/20 24 02/28/2024 RPR SCREE N, REFLE X TITER /CONF IRMAT ION RPR screen Nonrea ctive nonrea ctive Not Available [facility] (Lab) [address], [place], [address], 02/29/2024 12:26:38 03/27/19 25 03/27/2024 CULTU RE: URINE result report SEE RESULT S BELOW Test: Cultu re: Urine Speci men Sourc e: Urine - Clean Catch Speci men Type: Urine Speci men Date: 2024 1100 Resul t Date: 20246 Resul t Statu s: Final resul t Abnor mal: No Resul ting Lab: [facility] [address] [facility] [address] Tel: CULTU RE ----- ----- ----- --- No growt h in 1 day (dete ction level of 10,00 0 colon ies / ml.) Not Available [facility] (Lab) [address], [place], [address], 03/28/2024 22:49:50 03/27/19 25 03/27/2024 urina lysis , dipst ick Leukocytes + Not Available [facility] [address], [place], [address], 03/27/2024 11:12:39 03/27/19 25 03/27/2024 urina lysis , dipst ick Protein + Not Available [address] [place], [address], 03/27/2024 11:12:39 03/27/19 25 03/27/2024 urina lysis , dipst ick pH 8 Not Available [facility] [address], [place], [address], 03/27/2024 11:12:39 03/27/19 25 03/27/2024 urina lysis , dipst ick Blood + Not Available [facility] [address], [place], [address], 03/27/2024 11:12:39 03/27/19 25 03/27/2024 urina lysis , dipst ick Specific [address] 1.000 Not Available [facility] [address], [place], [address], 03/27/2024 11:12:39 03/27/19 25 03/27/2024 urina lysis , dipst ick Appearance cloudy Not Available [facility] kelley [address], [place], [address], 03/27/2024 11:12:39 03/27/19 25 03/27/2024 urina lysis , dipst ick Color yellow Not Available [facility] [address], [place], [address], 03/27/2024 11:12:39 01/29/20 24 01/29/2024 US, ora cosby w-up No observ ation record ed. [email or web address] [facility] [address], [place], [address], 01/29/2024 12:36:13 01/29/20 24 01/29/2024 , ora cosby w-up No observ ation record ed. DAIYL [address], [place], [address], 02/03/2024 12:28:00 02/28/20 24 02/28/2024 US, ora cosby w-up No observ ation [facility]. [facility] [address], [place], [address], 02/28/2024 13:05:05 02/28/20 24 02/28/2024 US, obste tric, follo w-up No observ ation record ed. [email or web address] [address], [place], [address], 02/28/2024 21:33:51 03/27/19 25 03/27/2024 US, obste tric, follo w-up No observ ation record ed. [email or web address] [facility] [address], [place], [address], 03/27/2024 13:12:00 03/27/19 25 03/27/2024 US, obste tric, follo w-up No observ ation record ed. [email or web address] [address], [place], [address], 04/01/2024 12:30:18 Result Notes None recorded. Problems Name Problem SNOMED Code Status Onset Date Resolution Date Notes Provider Name and Address Organization Details Recorded Time 34345870 Active 2023 Jessica Dawson null, [facility] 4 10:12:58 Marijuana user 709075114 Active Chana blair, [facility] 4 15:56:38 Cardiac finding 471696511 Active ECHOGENIC INTRACARD IAC FOCUS Binu Singh MD [address], [place], [address], [place] [facility] 4 10:50:00 Dilatatio n of renal pelvis 863485178 Active Binu Singh MD [address], [place], [address], [place] [facility] 4 10:50:40 Problem Notes None recorded. Procedures Surgical History Date Name Laterality Status Provider Name and Address Organization Details Recorded Time 11/08/2023 Date of Last Pap Smear completed Jessica Dawson [place] - [facility] 01/29/2024 10:26:50 Imaging Results Imaging Date Name Status LastModified by Organiz ation Details LastModified Time 01/29/2024 US, obstetric, follow-up completed [place] [address], [place], [address], 01/29/2024 12:36:13 01/29/2024 US, obstetric, follow-up completed DAILY [address], [place], [address], 02/03/2024 12:28:00 02/28/2024 US, obstetric, follow-up completed [email or web address] [address], [place], [address], 02/28/2024 13:05:05 02/28/2024 US, obstetric, follow-up completed [email or web address] [address], [place], [address], 02/28/2024 21:33:51 03/27/2024 US, obstetric, follow-up completed [email or web address] [facility] [address], [place], [address], 03/27/2024 13:12:00 03/27/2024 US, obstetric, follow-up completed [email or web address] [address], [place], [address], 04/01/2024 12:30:18 Procedure Notes None recorded. Medical Equipment None Reported. Allergies No known drug allergies Medications Name Sig Start Date Stop Date Status Note LastModified by Organization Details LastModified Time ceftriaxone 250 mg solution for injection Bring vial to office for injection 03/23 completed Not Available Not Available Not Available erythromyci n 500 mg tablet,gerardo yed release 03/23 completed Not Available Not Available Not Available metronidazo le 500 mg tablet Take 1 tablet twice a day by oral route for 7 days. 03/23 completed Not Available Not Available Not Available ondansetron 8 mg disintegrat ing tablet Place 1 tablet twice a day by transling ual route. 02/27 completed Not Available Not Available Not Available Macrobid 100 mg capsule Take 1 capsule every 12 hours by oral route. 2024 active Not Available Not Available Not Avai lable ursodiol 300 mg capsule Take 1 capsule twice a day by oral route as directed for 30 days. 2024 active Not Available Not Available Not Avai lable azithromyci n 500 mg tablet Take 2 tablets by mouth all at once 03/23 completed Not Available Not Available Not Available active Not Available Not Avai lable Not Available Vitals Date Recorded Body height Body mass index (BMI) Body weight Systolic blood pressure Diastolic blood pressure Provider Name and Address Organization Details Last Updated DateTime 02/28/2024 165.1 cm 25.1 kg/m2 55942.44 787 g 137 mm[Hg] 87 mm[Hg] [facility] 10:04:52 Date Recorded Body height Body mass index (BMI) Body weight Systolic blood pressure Diastolic blood pressure Provider Name and Address Organization Details Last Updated DateTime 03/11/2024 165.1 cm 25.5 kg/m2 96513.63 261 g 133 mm[Hg] 78 mm[Hg] [facility] 4 12:55:07 Date Recorded Body weight Systolic blood pressure Diastolic blood pressure Provider Name and Address Organization Details Last Updated DateTime 03/27/2024 03078.4097 2 g 131 mm[Hg] 81 mm[Hg] [facility] 03/27/2024 11:08:47 Date Recorded Body height Body mass index (BMI) Body weight Systolic blood pressure Diastolic blood pressure Provider Name and Address Organization Details Last Updated DateTime 04/08/2024 165.1 cm 26.5 kg/m2 94850.19 g 137 mm[Hg] 78 mm[Hg] Jessica Samir [facility] 09:55:54 Social History Question Answer Notes LastModified by Organizat ion Details LastModified Time Tobacco Smoking Status Never Smoker Mary Hare rossy, [facility] 02/18/2021 12:08:17 Do You Have An Advance Directive? No [email or web address] Information n ot available 02/18/2021 What Is Your Level Of Alcohol Consumption? None Information not available 10/29/2023 If You Are , What Was Your Level Of Alcohol Consumption Prior To ? None [email or web address] Information not available 02/18/2021 Are You Blind Or Do You Have Difficulty Seeing? No [email or web address] Information n ot available 02/18/2021 What Is Your Level Of Caffeine Consumption? Occasional [email or web address] Information not available 02/18/2021 In The 14 Days Before Symptom Onset, Have You Had Close Contact With A Laboratory-confirm ed COVID-19 While That Case Was Ill? No [email or web address] Information n ot available 02/18/2021 In The 14 Days Before Symptom Onset, Have You Had Close Contact With A Person Who Is Under Investigation For COVID-19 While That Person Was Ill? No [email or web address] Information not available 02/18/2021 Have You Been To An Area Known To Be High Risk For COVID-19? No [email or web address] Information not available 02/18/2021 Are You Deaf Or Do You Have Serious Difficulty Hearing? No [email or web address] Information not available 02/18/2021 What Type Of Diet Are You Following? REGULAR Information n ot available 02/18/2021 What Is The Highest Grade Or Level Of School You Have Completed Or The Highest Degree You Have Received? 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 No [email or web address] Information not available 02/18/2021 Have You Ever Been Counseled For Unhealthy Alcohol Use? No [email or web address] Information not available 02/18/2021 Do You Use Protection During Sex? No [email or web address] Information not available 02/18/2021 Do You Use Your Seat Belt Or Car Seat Routinely? Yes [email or web address] Information not available 02/18/2021 Do You Have Smoke And Carbon Monoxide Detectors In Your Home? Yes [email or web address] Information not available 02/18/2021 How Much Tobacco Do You Smoke? No [email or web address] Information not available 02/18/2021 Do You Feel Stressed (tense, Restless, Nervous, Or Anxious, Or Unable To Sleep At Night)? [id number] Information not available 10/29/2023 Do You Use Any Illicit Or Recreational Drugs? No Information not available 02/18/2021 Do You Use Sunscreen Routinely? Yes [email or web address] Information not available 02/18/2021 Has Tobacco Cessation Counseling Been Provided? No [email or web address] Information not available 02/18/2021 Have You Used IV Drugs? No Information not available 10/29/2023 Do You Or Have You Ever Used Any Other Forms Of Tobacco Or Nicotine? No [email or web address] Information not available 02/18/2021 Sex: Unknown Functional Status Question Answer Note LastModified by Organization D etails LastModified Time Are you able to walk? [email or web address] Information not available 02/18/2021 What is your exercise level? Moderate Information not available 10/29/2023 Mental Status None recorded. Family History Relationship Description Onset Age of this Age Resolved Age Notes LastModified by Organization Details LastModified Time Unspecified Relation Family history unknown Not available 02/18 11:56:40 Unspecified Relation Suspected endometrial cancer matern al great grandm a [email or web address] Not available 11/08/2023 09:32:11 Maternal Grandmother Malignant neoplasm of liver Not available 2023 09:32:11 Medical History Condition Response Allergies (Food, seasonal, environmental ) N Other N Breast Cancer N Drug/Latex Allergies/Reactions N Blood Transfusion N Dermatologic Disorders N Lung Disease N Defects or Inherited Disease N Breast Problem N Gestational Diabetes N Hematologic disorders N Anesthesia Complications N History of STI N Deep Vein Thrombosis N Polycystic ovary syndrome N Anxiety Disorder N Autoimmune disease N Arthritis N Infertility N Polyps N Acid Reflux (GERD) N History of abnormal pap N Cancer N Stroke N Varicosities N Neurologic/Epilepsy N Endometriosis N High Cholesterol N Headaches N Fibromyalgia N Kidney Disease N Heart Problems N Kidney or Bladder Problems N Thyroid Problems N GI Problems N Eating Disorder N Anemia N Art (IVF or FET) N Psychiatric Illness N Ovarian Cancer N Diabetes N Pulmonary (TB, Asthma) N Hepatitis/Liver Disease N No Past Medical History N Eczema N Urinary Tract Infection N Abuse/Domestic Violence N Asthma N Trauma/Violence N Depression/ depression N Heart Disease N Pre-Eclampsia N Hypertension N Osteoporosis N Thrombophilias N Gynecological History Statement/Question Response Abnormal Pap N Flow Moderate Date of LMP 08/14/2023 Was last menstrual period normal Y STIs/STDs Y HPV Vaccine N Duration of Flow (days) 4 Current Control Method Are cycles usually normal Y Frequency of Cycle (Q days) 33 Sexually Active? Y Menses Monthly Y Age of first menstrual cycle 17 Date of Last Pap Smear 11/08/2023 Sexual Problems? N Desired Control Method None LMP Definite Obstetrics History GPAL:G 2 P 0 0 1 0 Type Value Spontaneous 1 Living 0 Total 2 Past Encounters Encounter ID Performer Location Encounter Start Date Encounter Closed Date Diagnosis/Indication Diagnosis SNOMED-CT Code Diagnosis ICD10 Code Diagnosis Note [id number] Gabrielle Harden [facility] [address],[place] [address] 02/18/2021 11:49:42 02/18/2021 13:01:11 Gynecologic examination 44872431 Z01.419 Amenorrhea 39705921 N91. 2 [id number] Sumi Boone [facility] [address],[place] [address] 02/18/2021 11:51:46 02/18/2021 13:12:22 Uncertain viability of 108524442 O36.80X9 Z3A.00 [id number] Sirena Christopher [facility] [address],[place] [address] 02/23/2021 16:35:27 02/23/2021 16:56:59 Gonorrhea 03361355 A54.9 [id number] Chen Pringle [facility] [address],[place] [address] 10/15/2023 11:57:38 10/15/2023 12:24:14 Gestation period, 8 weeks 17560128 O09.291 O36.80X0 Z3A.08 [id number] Kerrie Dye [facility] [address],[place] [address] 10/29/2023 15:27:58 10/29/2023 15:54:26 [id number] Binu Singh MD [facility] [address],[place] [address] 10/29/2023 15:28:24 10/30/2023 03:10:53 Nausea and vomiting 61162036 R11.2 this patient is a 31-year-ol d female who presents for amenorrhea . She is a positive test. Ultrasound revealed a 1st trimester gestation. Patient has no complaints . We talked about early care. Talked about genetic screening. We talked about her ultrasound results. We talked about the 12 week ultrasound that has genetic screening components . She was given recommenda tions on exercise, diet, over-the-c ounter medication s. We reviewed her obstetric history. We reviewed her medical history. We reviewed her social history. She will begin routine care at her next visit. I spent over 20 minutes on her care in total. Routine an tenatal care 193830030 Z34.90 [id number] Chen [facility] [address],[place] [address] 11/08/2023 09:32:03 11/08/2023 10:05:33 screening 560045917 Z36.82 Z3A.12 [id number] Binu Singh MD [facility] [address],[place] [address] 11/08/2023 09:32:40 11/08/2023 11:12:00 Routine care 446856125 Z34.90 [id number] Binu Singh MD [facility] [address],[place] [address] 12/04/2023 10:06:06 12/04/2023 10:58:42 Urinary symptoms 061797908 R39.9 Routine an tenatal care 597954792 Z34.90 [id number] Kerrie Dye [facility] [address],[place] [address] 01/01/2024 09:28:52 01/01/2024 10:33:21 screening for malformation 122021882 Z36.3 Z3A.20 [id number] Binu Singh MD [facility] [address],[place] [address] 01/01/2024 09:31:14 01/01/2024 11:01:13 Routine care 182927772 Z34.90 [id number] [facility] [address],[place] [address] 01/29/2024 09:35:21 01/29/2024 10:11:34 condition affecting obstetrical care of mother 551300806 O35.8XX0 Z3A.24 [id number] [facility] [address],[place] [address] 01/29/2024 09:35:40 01/29/2024 11:18:04 Routine care 533568286 Z34.90 [id number] [facility] [address],[place] [address] 02/28/2024 09:12:56 02/28/2024 10:03:45 condition affecting obstetrical care of mother 831218300 O35.8XX0 Z3A.28 [id number] Binu Singh MD [facility] [address],[place] [address] 02/28/2024 09:15:40 02/28/2024 10:40:49 Routine care 811186606 Z34.90 [id number] Binu Singh MD [facility] [address],[place] [address] 03/11/2024 12:11:01 03/11/2024 13:24:11 Routine care 897841065 Z34.90 [id number] [facility] [address],[place] [address] 03/27/2024 10:24:00 03/27/2024 11:07:58 condition affecting obstetrical care of mother 828191749 O35.8XX0 Z3A.32 [id number] Binu Singh MD [facility] [address] [address] 03/27/2024 10:24:15 03/27/2024 11:54:22 Urinary symptoms 354815169 R39.9 Routine an tenatal care 161174400 Z34.90 [id number] Binu Singh MD [facility] [address] [address] 04/08/2024 09:43:41 04/08/2024 10:29:50 Routine care 576089720 Z34.90 Health Concerns Section Related Observation LastModified by Organization Detai ls LastModified Time None Recorded Concern Status LastModified by Organization Details LastModified Time None Recorded Advance Directives Directive N: Payers Encounter Date Sequence Insurance Name Policy Number Policy Pradhan Covered Member ID Pradhan Member ID Guarantor Name 02/28/2024 1 [facility] ON OR AFTER 09/09/20 (MEDICAID REPLACEMENT - HMO) Shi Tovar [id number] Shi Tovar 03/11/2024 1 [facility] ON OR AFTER 09/09/20 (MEDICAID REPLACEMENT - HMO) Shi Tovar [id number] Shi Tovar 03/27/2024 1 [facility] ON OR AFTER 09/09/20 (MEDICAID REPLACEMENT - HMO) Shi Tovar [id number] Shi Tovar 03/27/2024 1 [facility] ON OR AFTER 09/09/20 (MEDICAID REPLACEMENT - HMO) Shi Tovar [id number] Shi Tovar 04/08/2024 1 [facility] ON OR AFTER 09/09/20 (MEDICAID REPLACEMENT - HMO) Shi Tovar [id number] Shi Tovar OBGyn Episode Ob Episode Information Episode Created Date Number of Fetuses Patient Bloodtype Patient rh Status Prepregnancy Weight lbs Domestic Partner Domestic Partner Phone Father Name Director Data Analytics Status 11/08/19 24 1 O Positive 130 Mandy an Summner OPEN Fetus Data First Name Last Name Admitted to NICU Weight (g) Sex Living Outcome Pediatric Complications Fetus ID Race Codes Race Delivery Type [id number] Problems Problem Notes Problem Name Start Date End Date Resolution Snomed Code Not e Dilatation of renal pelvis 644209550 Cardiac finding 897370257 ECHO GENIC INTRACARDIAC FOCUS Marijuana user 084764428 Rich Calculation Initial Rich Date Initial Exam Date Initial Exam Provider Initial Ultrasound Date Last Menstrual Period Date Ultra Sound Weeks Gestation 11/08/2023 11/08/2023 08/14/2023 12 Eighteen To Twenty Week Rich Update Ultra Sound Date Fundal Height At Umbil Quickening Date Ultra Sound Latest Weeks Gestation Final Rich Confirmed By Final Rich Confirmed Date Final Rich Date Ultra Sound Latest Days Gestation 0 [email or web address] 11/08/2023 05/21/19 25 0 Pre-milan Flowsheet Flowsheet Date 11/08/2023 Quiroz Score Blood Edema Fundus Height Fundus Units Glucose Ketones Leukocytes Nitrite Labor Signs Protein Cervic Dilation Cervic Effacement Cervic Station Type Weight in lbs Pre/Post Dialysis Refused Weight 130.774235763046 BP Diastolic BP Location Tested BP Systolic BP Type 80 L arm 130 sitting Fetus Heart Rate Present A 154 Fetus Movement A Yes Comments this patient is a 27year-old multipparous female at 12 weeks' gestation who presents for initial care. She has a history of miscarriage. Her medical, surgical, obstetric history is unremarkable. She is vaccinated. She was given precautions recommendations for . We talked about vaccines in . Talked about care in detail. She is having genetic testing. She had a normal 12 week ultrasound. To begin routine care. Flowsheet Date 12/04/2023 Quiroz Score Blood Edema Fundus Height Fundus Units Glucose Ketones Leukocytes Nitrite Labor Signs Protein Cervic Dilation Cervic Effacement Cervic Station 16 cm Type Weight in lbs Pre/Post Dialysis Refused 134.598863285815 BP Diastolic BP Location Tested BP Systolic BP Type 89 L arm 139 sitting Fetus Heart Rate Present Fetus Movement A Yes Comments no complaints, no problems, routine care, no contractions, no vaginal bleeding, no loss of fluid, no cramping.UTI - to treat Flowsheet Date 01/01/2024 Quiroz Score Blood Edema Fundus Height Fundus Units Glucose Ketones Leukocytes Nitrite Labor Signs Protein Cervic Dilation Cervic Effacement Cervic Station Type Weight in lbs Pre/Post Dialysis Refused BP Diastolic BP Location Tested BP Systolic BP Type Fetus Heart Rate Present Fetus Movement Comments Flowsheet Date 01/01/2024 Quiroz Score Blood Edema Fundus Height Fundus Units Glucose Ketones Leukocytes Nitrite Labor Signs Protein Cervic Dilation Cervic Effacement Cervic Station 20 cm Type Weight in lbs Pre/Post Dialysis Refused 139.456260239405 BP Diastolic BP Location Tested BP Systolic BP Type 75 L arm 116 sitting Fetus Heart Rate Present A 145 Fetus Movement A Increased Comments no complaints, no problems, routine care, no contractions, no vaginal bleeding, no loss of fluid, no cramping Flowsheet Date 01/29/2024 Quiroz Score Blood Edema Fundus Height Fundus Units Glucose Ketones Leukocytes Nitrite Labor Signs Protein Cervic Dilation Cervic Effacement Cervic Station Type Weight in lbs Pre/Post Dialysis Refused BP Diastolic BP Location Tested BP Systolic BP Type Fetus Heart Rate Present Fetus Movement Comments Flowsheet Date 01/29/2024 Quiroz Score Blood Edema Fundus Height Fundus Units Glucose Ketones Leukocytes Nitrite Labor Signs Protein Cervic Dilation Cervic Effacement Cervic Station Type Weight in lbs Pre/Post Dialysis Refused 145.0942444565 BP Diastolic BP Location Tested BP Systolic BP Type 84 L arm 142 sitting 70 L arm 110 sitting Fetus Heart Rate Present Fetus Movement A Yes Comments no complaints, no problems, routine care, no contractions, no vaginal bleeding, no loss of fluid, no cramping elevated blood pressure observed Flowsheet Date 02/28/2024 Quiroz Score Blood Edema Fundus Height Fundus Units Glucose Ketones Leukocytes Nitrite Labor Signs Protein Cervic Dilation Cervic Effacement Cervic Station Type Weight in lbs Pre/Post Dialysis Refused BP Diastolic BP Location Tested BP Systolic BP Type Fetus Heart Rate Present Fetus Movement Comments Flowsheet Date 02/28/2024 Quiroz Score Blood Edema Fundus Height Fundus Units Glucose Ketones Leukocytes Nitrite Labor Signs Protein Cervic Dilation Cervic Effacement Cervic Station Type Weight in lbs Pre/Post Dialysis Refused [id number] BP Diastolic BP Location Tested BP Systolic BP Type 87 L arm 137 sitting Fetus Heart Rate Present A 145 Fetus Movement A Yes Comments no complaints, no problems, routine care, no contractions, no vaginal bleeding, no loss of fluid, no cramping Flowsheet Date 03/11/2024 Quiroz Score Blood Edema Fundus Height Fundus Units Glucose Ketones Leukocytes Nitrite Labor Signs Protein Cervic Dilation Cervic Effacement Cervic Station Type Weight in lbs Pre/Post Dialysis Refused [id number] BP Diastolic BP Location Tested BP Systolic BP Type 78 133 sitting Fetus Heart Rate Present A 130 Fetus Movement A Yes Comments no complaints, no problems, routine care, no contractions, no vaginal bleeding, no loss of fluid, no cramping Flowsheet Date 03/27/2024 Quiroz Score Blood Edema Fundus Height Fundus Units Glucose Ketones Leukocytes Nitrite Labor Signs Protein Cervic Dilation Cervic Effacement Cervic Station Type Weight in lbs Pre/Post Dialysis Refused BP Diastolic BP Location Tested BP Systolic BP Type Fetus Heart Rate Present Fetus Movement Comments Flowsheet Date 03/27/2024 Quiroz Score Blood Edema Fundus Height Fundus Units Glucose Ketones Leukocytes Nitrite Labor Signs Protein Cervic Dilation Cervic Effacement Cervic Station Type Weight in lbs Pre/Post Dialysis Refused 156.870722457513 BP Diastolic BP Location Tested BP Systolic BP Type 81 L arm 131 sitting Fetus Heart Rate Present Fetus Movement A Yes Comments no complaints, no problems, routine care, no contractions, no vaginal bleeding, no loss of fluid, no cramping, persistent pyelectasis, repeat ultrasound in 4 weeks Flowsheet Date 04/08/2024 Quiroz Score Blood Edema Fundus Height Fundus Units Glucose Ketones Leukocytes Nitrite Labor Signs Protein Cervic Dilation Cervic Effacement Cervic Station Type Weight in lbs Pre/Post Dialysis Refused Weight 159.486760912116 BP Diastolic BP Location Tested BP Systolic BP Type 78 L arm 137 sitting Fetus Heart Rate Present A 158 Fetus Movement A Yes Comments no complaints, no problems, routine care, no contractions, no vaginal bleeding, no loss of fluid, no cramping Menstrual History Last Menstrual Date Menses Monthly On Bcp Conception Prior Menses Frequency Hcg Plus Date Menarche Onset Age 0608/14/2023 true Delivery Information Delivery Date Delivery Type Labor Anesthesia Weeks Gestation Incision Type Labor Labor Length Hrs Delivered By Post Complications Tubal Sterilization Discharge Date Comments Discharge Information Feeding Method Contraceptive Method Maternal HG B and HCT Levels Ob Episode Information Episode Created Date Number of Fetuses Patient Bloodtype Patient rh Status Prepregnancy Weight lbs Domestic Partner Domestic Partner Phone Father Name Director Data Analytics Status 11/08/19 24 1 CLOSED Fetus Data First Name Last Name Admitted to NICU Weight (g) Sex Living Outcome Pediatric Complications Fetus ID Race Codes Race Delivery Type , Spontane ous [id number] Rich Calculation Initial Rich Date Initial Exam Date Initial Exam Provider Initial Ultrasound Date Last Menstrual Period Date Ultra Sound Weeks Gestation 0 Eighteen To Twenty Week Rich Update Ultra Sound Date Fundal Height At Umbil Quickening Date Ultra Sound Latest Weeks Gestation Final Rich Confirmed By Final Rich Confirmed Date Final Rich Date Ultra Sound Latest Days Gestation 0 0 Menstrual History Last Menstrual Date Menses Monthly On Bcp Conception Prior Menses Frequency Hcg Plus Date Menarche Onset Age Delivery Information Delivery Date Delivery Type Labor Anesthesia Weeks Gestation Incision Type Labor Labor Length Hrs Delivered By Post Complications Tubal Sterilization Discharge Date Comments 1 Discharge Information Feeding Method Contraceptive Method Maternal HG B and HCT Levels
--- NOTE | 2024-04-11 02:24 | OBADM ---
This patient, Shi Tovar, admitted to the OB room Labor/Delivery/Recovery 103 for observation. Patient/family oriented to hospital policies and general routines including ID bracelet, bed and alarms, visiting hours, pain management, procedures, bathroom and other care routines, personal items, smoking policy, room service/diet, and visiting hours. Patient/Family are encouraged to report perceived risks to care and to ask questions if they do not understand what they are told or what they should do.
[2024-04-11 02:26] LABS: Add Urine Microscopic? YES; Appearance Urine Clear (Clear); Bacteria Urine None Seen /hpf; Bilirubin Urine Negative (Negative); Blood Urine Negative (Negative); Color Urine Yellow (Yellow); Glucose Urine UA Negative (Negative); Ketones Urine Trace mg/dL (Negative); Leukocyte Esterase Ur Trace LEU/UL (Negative); Nitrate Urine Negative (Negative); Non Pathogenic Casts 0-2; Protein Urine Negative (Negative); RBC Urine 0-2 /hpf (0-2); Specific Grav Ur 1.007 (1.001-1.035); Squamous Epithelial Cell Urine Occasional /hpf (Few); Urobilinogen Urine 0.2 mg/dL (<2.0); WBC Urine 0-5 /hpf (0-3); pH Urine 6.5 (5.0-9.0)
[2024-04-11] MEDS: TERBUTALINE SULFATE 1 MG/ML VIAL 0.25 MG SUB-Q (03:05)
--- NOTE | 2024-04-30 21:28 | PM.OBTRLD ---
OB - Triage/Final Diagnosis Visit Information Comments/Additional reasons for admission: I have assessed the risk for this patient, Shi Tovar, and determined that she would benefit from observation care. Evaluation Laboratory results: Laboratory Tests 04/11/24 02:06 Urine Color Yellow Urine Appearance Clear Urine pH 6.5 Ur Specific Schriever 1.007 Urine Protein Negative Urine Glucose (UA) Negative Urine Ketones Trace H Ur Blood (Man) Negative Urine Nitrate Negative Urine Bilirubin Negative Urine Urobilinogen 0.2 Leukocyte Esterase Rfl Trace H Urine RBC 0-2 Urine WBC 0-5 Ur Squamous Epith Cells Occasional Urine Bacteria None seen Urine Casts 0-2 Final Diagnosis (1) False labor: Code(s): O47.9 - False labor, unspecified Status: Acute
== END 2024-04-11 03:55 | disposition home or self-care (01) ==
PROVIDERS: Admitting Provider Obstetrics & Gynecology; Visit Provider Obstetrics & Gynecology
DX: O47.03 False labor before 37 completed weeks of gestation, third trimester (principal); Z3A.34 34 weeks gestation of pregnancy
CPT/HCPCS: 81001; 96372; G0378; G0379; J3105

== ENCOUNTER 2024-04-16 12:47 | Outpatient (RCR) | payer OTHER, SELFPAY ==
[2024-04-16 13:19] VITALS: BP 112/74; PULSE 95
== END 2024-07-02 17:12 | disposition home or self-care (01) ==
LOC: ANHOBOP 12:47
PROVIDERS: Visit Provider Obstetrics & Gynecology
DX: O26.893 Other specified pregnancy related conditions, third trimester (principal)
CPT/HCPCS: 59025

== ENCOUNTER 2024-05-15 04:51 | Inpatient (IN) | payer OTHER, SELFPAY ==
[2024-05-15] VITALS (279 sets, daily range): BP systolic 93–157; BP diastolic 49–134; PULSE 57–288; TEMP 36.8–37.8; O2SAT 87–100; BMI 26.6
--- OUTSIDE RECORDS SUMMARY | 2024-05-15 04:56 | XMS_ITS | Data Portability ---
Author Organization [facility] [place] Address [address] [place] [address] [place] [address] Assessment Encounter Date Assessment Date Assessment LastModified by Organization Details LastModified Time 05/02/2024 05/02/2024 Patient is ___weeks . Discussed plan. Not available 05/02/2024 10:13:10 05/07/2024 05/07/2024 Patient is ___weeks . Discussed plan. [email or web address] Not available 05/07/2024 10:54:56 05/14/2024 05/14/2024 Patient is ___weeks . Discussed plan. Not available 05/14/2024 17:21:28 Plan of Treatment Reminders Order Date Submit Date Provider Last Modified By Organization Details Last Modified Time Details Appointments INDUCTION 2024 05:00A Silvia SINGH MD Not available Not available Not available OB ROUTINE 2024 11:00A Silvia SINGH MD Not available Not available Not available Lab None recorded. Referral None recorded. Procedures None recorded. Surgeries None recorded. Imaging non-stres s test 2024 025 [email or web address] [place], [address], [place], [address], 05/05/2024 10:46:14 non-stres s test 2024 025 [email or web address] [place], [address], [place], [address], 04/25/2024 15:13:59 Medication Orders None recorded. Patient TargetsNo targets recorded. Patient InstructionsNo instructions recorded. Reason for Referral None Reported. Results Created Date Observation Date Name Description Value Unit Range Abnormal Flag Note LastModifiedBy Organization Detail LastModifiedTime 03/27/1903/27/2024 CULTU RE: URINE result report SEE RESULT S BELOW Test: Cultu re: Urine Speci men Sourc e: Urine - Clean Catch Speci men Type: Urine Speci men Date: 2024 1100 Resul t Date: 2024 2146 Resul t Statu s: Final resul t Abnor mal: No Resul ting Lab: [facility] [address] [facility] [address] Tel: CULTU RE ----- ----- ----- --- No growt h in 1 day (dete ction level of 10,00 0 colon ies / ml.) Not Available [facility] (Lab) [address], [place], [address], 03/28/2024 22:49:50 03/27/1903/27/2024 urina lysis , dipst ick Leukocytes + Not Available [facility] [address], [place], [address], 03/27/2024 11:12:39 03/27/19 25 03/27/2024 urina lysis , dipst ick Protein + Not Available [place] [address], [place], [address], 03/27/2024 11:12:39 03/27/19 25 03/27/2024 urina lysis , dipst ick pH 8 Not Available [place] [address], [place], [address], 03/27/2024 11:12:39 03/27/19 25 03/27/2024 urina lysis , dipst ick Blood + Not Available [place] [address], [place], [address], 03/27/2024 11:12:39 03/27/19 25 03/27/2024 urina lysis , dipst ick Specific [place] 1.000 Not Available [facility] melvajared [address], [place], [address], 03/27/2024 11:12:39 03/27/19 25 03/27/2024 urina lysis , dipst ick Appearance cloudy Not Available [facility] [address], [place], [address], 03/27/2024 11:12:39 03/27/19 25 03/27/2024 urina lysis , dipst ick Color yellow Not Available [place] [address], [place], [address], 03/27/2024 11:12:39 04/10/19 25 04/10/2024 CMP(C OMPRE HENSI VE METAB OLIC PANEL ) sodium 136 mmol/ L 133-14 6 Not Available [facility] (Lab) [address] [place], [address], 04/11/2024 10:16:07 04/10/19 25 04/10/2024 CMP(C OMPRE HENSI VE METAB OLIC PANEL ) potassium 4.1 mmol/ L 3.5-5. 1 Not Available [facility] (Lab) [address] [place], [address], 04/11/2024 10:16:07 04/10/19 25 04/10/2024 CMP(C OMPRE HENSI VE METAB OLIC PANEL ) chloride 106 mmol/ L 98-107 Not Available [facility] (Lab) [address] [place], [address], 04/11/2024 10:16:07 04/10/19 25 04/10/2024 CMP(C OMPRE HENSI VE METAB OLIC PANEL ) carbon dioxide 24 mmol/ L 21-31 Not Available [facility] (Lab) [address], [place], [address], 04/11/2024 10:16:07 04/10/19 25 04/10/2024 CMP(C OMPRE HENSI VE METAB OLIC PANEL ) anion gap 6 mmol/ L 4-13 Not Available [facility] (Lab) [address] [facility], [place], [address], 04/11/2024 10:16:07 04/10/19 25 04/10/2024 CMP(C OMPRE HENSI VE METAB OLIC PANEL ) blood urea nitrogen 9 mg/dL 7-25 Not Available [facility] (Lab) [address] [facility], [place], [address], 04/11/2024 10:16:07 04/10/19 25 04/10/2024 CMP(C OMPRE HENSI VE METAB OLIC PANEL ) creatinine 0.53 mg/dL 0.60-1 .30 low Not Available [facility] (Lab) [address] [facility], [place], [address], 04/11/2024 10:16:07 04/10/19 25 04/10/2024 CMP(C OMPRE HENSI VE METAB OLIC PANEL ) egfrcr (CKD-epi 2020) >90 mL/mi n/1.7 3_m2 >=60 Not Available [facility] (Lab) [address] [facility], [place], [address], 04/11/2024 10:16:07 04/10/19 25 04/10/2024 CMP(C OMPRE HENSI VE METAB OLIC PANEL ) calcium 8.8 mg/dL 8.3-10 .5 Not Available [facility] (Lab) [address] [place], [address], 04/11/2024 10:16:07 04/10/19 25 04/10/2024 CMP(C OMPRE HENSI VE METAB OLIC PANEL ) glucose 70 mg/dL 70-100 Not Available [facility] (Lab) [address] [facility], [place], [address], 04/11/2024 10:16:07 04/10/19 25 04/10/2024 CMP(C OMPRE HENSI VE METAB OLIC PANEL ) protein, total 5.9 g/dL 6.4-8. 3 low Not Available [facility] (Lab) [address] [facility], [place], [address], 04/11/2024 10:16:07 04/10/19 25 04/10/2024 CMP(C OMPRE HENSI VE METAB OLIC PANEL ) albumin 3.3 g/dL 3.5-5. 0 low Not Available [facility] (Lab) [address] [facility], [place], [address], 04/11/2024 10:16:07 04/10/19 25 04/10/2024 CMP(C OMPRE HENSI VE METAB OLIC PANEL ) ALT 12 units /L 9-43 Not Available [facility] (Lab) [address] [facility], [place], [address], 04/11/2024 10:16:07 04/10/19 25 04/10/2024 CMP(C OMPRE HENSI VE METAB OLIC PANEL ) alkaline phosphatase 59 units /L 34-104 Not Available [facility] (Lab) [address] [facility], [place], [address], 04/11/2024 10:16:07 04/10/19 25 04/10/2024 CMP(C OMPRE HENSI VE METAB OLIC PANEL ) AST 17 units /L 13-39 Not Available [facility] (Lab) [address] [facility], [place], [address], 04/11/2024 10:16:07 04/10/19 25 04/10/2024 CMP(C OMPRE HENSI VE METAB OLIC PANEL ) bilirubin, total 0.3 mg/dL 0.2-1. 2 Not Available [facility] (Lab) [address] [facility], [place], [address], 04/11/2024 10:16:07 04/10/19 25 04/10/2024 BILE ACIDS , TOTAL bile acids, total 5 umol/ L 0-10 Not Available [facility] (Lab) [address] [facility], [place], [address], 04/11/2024 10:16:07 04/22/19 25 04/22/2024 BILE ACIDS , TOTAL bile acids, total 3 umol/ L 0-10 Not Available [facility] (Lab) [address] [facility], [place], [address], 04/23/2024 13:42:10 04/22/19 25 04/22/2024 CULTU RE: GROUP B STREP SCREE N, REFLE X SUSCE PTIBI LITY result report SEE RESULT S BELOW Test: Cultu re: Group B Strep , Refle x Susce ptibi lity ([facility]/ [facility] ) Speci men Sourc e: Vagin a/Rec tan Speci men Type: Vagin al/Re ctal Speci men Date: 2024 1343 Resul t Date: 2024 1430 Resul t Statu s: Final resul t Abnor mal: No Resul ting Lab: [facility] [address] [facility] [address] Tel: CULTU RE ----- ----- ----- --- No Group B strep isola yoko at 2 days (lavonne ctive broth enhan cemen t) Not Available [facility] (Lab) [address] [facility], [place], [address], 04/25/2024 15:33:56 03/27/19 25 03/27/2024 US, mike cosbyo w-up No observ ation record ed. [email or web address] [place] [address], [place], [address], 03/27/2024 13:12:00 03/27/19 25 03/27/2024 US, felae davidson follo w-up No observ ation record ed. [address], [place], [address], 04/01/2024 12:30:18 04/16/19 25 04/16/2024 non-s tress test No observ ation record ed. [address], [place], [address], 04/16/2024 18:24:58 04/18/19 25 04/18/2024 US, obste tric, bioph ysica l profi le + non-s tress test No observ ation record ed. [facility] [address], [place], [address], 04/18/2024 18:34:04 04/18/19 25 04/18/2024 US, obste tric, bioph ysica l profi le + non-s tress test No observ ation record ed. [address], [place], [address], 05/06/2024 15:22:57 04/22/19 25 04/22/2024 US, obste tric, follo w-up No observ ation record ed. [facility] [address], [place], [address], 04/22/2024 12:56:30 04/22/19 25 04/22/2024 US, obste tric, bioph ysica l profi le + non-s tress test No observ ation record ed. [facility] [address], [place], [address], 04/22/2024 12:56:41 04/22/19 25 04/22/2024 US, doppl er, umbil ical arter y veloc imetr y No observ ation record ed. [facility] [address], [place], [address], 04/22/2024 12:56:54 04/22/19 25 04/22/2024 US, obste tric, follo w-up No observ ation record ed. [email or web address] [place] [address], [place], [address], 04/22/2024 22:15:40 04/22/19 25 04/22/2024 non-s tress test No observ ation record ed. [place] [address], [place], [address], 04/22/2024 17:29:28 04/25/19 25 04/25/2024 non-s tress test No observ ation record ed. [email or web address] [place] [address], [place], [address], 04/25/2024 15:06:22 04/29/19 25 04/29/2024 US, obste tric, follo w-up No observ ation record ed. [facility] [address] [place], [address], 05/01/2024 23:43:33 04/29/19 25 04/29/2024 US, obste tric, follo w-up No observ ation record ed. [address], [address], 05/01/2024 23:44:23 04/29/19 25 04/29/2024 US, obste tric, follo w-up No observ ation record ed. [address], [address], 05/01/2024 23:49:50 04/29/19 25 04/29/2024 US, obste tric, follo w-up No observ ation record ed. [address], [place], [address], 05/01/2024 23:50:44 04/29/19 25 04/29/2024 US, obste tric, follo w-up No observ ation record ed. [email or web address] [facility] [address], [place], [address], 05/12/2024 21:57:08 04/29/19 25 04/29/2024 US, obste tric, follo w-up No observ ation record ed. [email or web address] [address] [facility], [place], [address], 05/02/2024 00:06:34 04/30/19 25 04/29/2024 US, obste tric, follo w-up No observ ation record ed. [email or web address] [address], [place], [address], 05/02/2024 00:09:56 05/02/19 25 05/02/2024 non-s tress test No observ ation record ed. [email or web address] [place] [address], [place], [address], 05/02/2024 19:33:00 05/05/19 25 05/05/2024 non-s tress test No observ ation record ed. [address], [place], [address], 05/08/2024 10:44:40 05/09/19 25 05/09/2024 non-s tress test No observ ation record ed. [place] [address], [place], [address], 05/09/2024 16:22:42 Result Notes None recorded. Problems Name Problem SNOMED Code Status Onset Date Resolution Date Notes Provider Name and Address Organization Details Recorded Time 67273820 Active 2023 Jessica Dawson [facility], [facility] 4 10:12:58 Marijuana user 238181327 Active Chana Garcia [facility], [facility] 4 15:56:38 Cardiac finding 871076328 Active ECHOGENIC INTRACARD IAC FOCUS Binu Singh MD [address], [place], [address], [place] [facility] 4 10:50:00 Dilatatio n of renal pelvis 677421897 Active NEEDS RENAL ULTRASOUN D WITHIN 48 HOURS Monitor urine output and blood pressure during hospital stay -renal us at greater than 48 hrs Vane blair, [facility] 5 23:25:38 growth restricti on Active 04/22 us EFW 8% HC <1% AC 9% referral faxed 04/22/24 Scheduled [facility] 04/29/24 1030 Level II US and consult Vane Burch [facility], [facility] 5 12:45:26 growth restricti on Active 04/22 us EFW 8% HC <1% AC 9% referral faxed 04/22/24 Scheduled [facility] 04/29/24 1030 Level II US and consult Vane Burch [facility] 5 12:45:26 Problem Notes None recorded. Procedures Surgical History Date Name Laterality Status Provider Name and Address Organization Details Recorded Time 11/08/2023 Date of Last Pap Smear completed Jessica Dawson [facility] 01/29/2024 10:26:50 Imaging Results Imaging Date Name Status LastModified by Organiz ation Details LastModified Time 03/27/2024 US, obstetric, follow-up completed [email or web address] [place] [address], [place], [address], 03/27/2024 13:12:00 03/27/2024 US, obstetric, follow-up completed [email or web address] [place] [address], [place], [address], 04/01/2024 12:30:18 04/16/2024 non-stress test completed [address], [place], [address], 04/16/2024 18:24:58 04/18/2024 US, obstetric, biophysical profile + non-stress test completed [facility] [address], [place], [address], 04/18/2024 18:34:04 04/18/2024 US, obstetric, biophysical profile + non-stress test completed [email or web address] [place] [address], [place], [address], 05/06/2024 15:22:57 04/22/2024 US, obstetric, follow-up completed [facility] [address], [place], [address], 04/22/2024 12:56:30 04/22/2024 US, obstetric, biophysical profile + non-stress test completed [facility] [address], [place], [address], 04/22/2024 12:56:41 04/22/2024 US, doppler, umbilical artery velocimetry completed [facility] [address], [place], [address], 04/22/2024 12:56:54 04/22/2024 US, obstetric, follow-up completed [email or web address] [place] [address], [place], [address], 04/22/2024 22:15:40 04/22/2024 non-stress test active [address], [place], [address], 04/22/2024 17:29:28 04/25/2024 non-stress test completed [email or web address] [place] [address], [place], [address], 04/25/2024 15:06:22 04/29/2024 US, obstetric, follow-up completed [facility] [address] [place], [address], 05/01/2024 23:43:33 04/29/2024 US, obstetric, follow-up completed [address], [address], 05/01/2024 23:44:23 04/29/2024 US, obstetric, follow-up completed [facility] [address] [place] [address], [address], 05/01/2024 23:49:50 04/29/2024 US, obstetric, follow-up completed [facility] [address] [place] [address], [address], 05/01/2024 23:50:44 04/29/2024 US, obstetric, follow-up completed [email or web address], [place], [address], 05/12/2024 21:57:08 04/29/2024 US, obstetric, follow-up completed [address] [place], [address], 05/02/2024 00:06:34 04/29/2024 US, obstetric, follow-up completed [facility] [place] [address] [place], [address], 05/02/2024 00:09:56 05/02/2024 non-stress test completed [email or web address] [place] [address], [place], [address], 05/02/2024 19:33:00 05/05/2024 non-stress test completed [address], [place], [address], 05/08/2024 10:44:40 05/09/2024 non-stress test active [place] [address], [place], [address], 05/09/2024 16:22:42 Procedure Notes None recorded. Medical Equipment None [...] capsule every 12 hours by oral route. 04/22 completed Not Available Not Available Not Available ursodiol 300 mg capsule Take 1 capsule twice a day by oral route as directed for 30 days. active Not Available Not Available No t Available azithromyci n 500 mg tablet Take 2 tablets by mouth all at once 03/23 completed Not Available Not Available Not Available active Not Available Not Avai lable Not Available Vitals Date Recorded Body height Body mass index (BMI) Body weight Systolic blood pressure Diastolic blood pressure Provider Name and Address Organization Details Last Updated DateTime 04/25/2024 165.1 cm 27 kg/m2 38670.96 g 125 mm[Hg] 81 mm[Hg] ANEL Chen [facility] 15:07:38 Date Recorded Body weight Systolic blood pressure Diastolic blood pressure Provider Name and Address Organization Details Last Updated DateTime 05/02/2024 10610.7410 5 g 135 mm[Hg] 87 mm[Hg] Jessica Dawson [facility] 05/02/2024 10:13:44 Date Recorded Body height Body mass index (BMI) Body weight Systolic blood pressure Diastolic blood pressure Provider Name and Address Organization Details Last Updated DateTime 05/07/2024 165.1 cm 27.5 kg/m2 54105.74 g 138 mm[Hg] 85 mm[Hg] Daisyjared Gomezen [facility] 10:55:54 Date Recorded Body height Body mass index (BMI) Body weight Systolic blood pressure Diastolic blood pressure Provider Name and Address Organization Details Last Updated DateTime 05/14/2024 165.1 cm 27.5 kg/m2 12203.74 g 133 mm[Hg] 92 mm[Hg] Jessica [facility] 17:21:57 Social History Question Answer Notes LastModified by Organizat ion Details LastModified Time Tobacco Smoking Status Never Smoker Mary blair, [facility] 02/18/2021 12:08:17 Do You Have An Advance Directive? No [email or web address] Information n ot available 02/18/2021 What Is Your Level Of Alcohol Consumption? None Information not available 10/29/2023 If You Are , What Was Your Level Of Alcohol Consumption Prior To ? None [email or web address] Information not available 02/18/2021 Are You Blind Or Do You Have Difficulty Seeing? No [email or web address] Information n ot available 02/18/2021 What Is Your Level Of Caffeine Consumption? Occasional [email or web address] Information not available 02/18/2021 In The 14 Days Before Symptom Onset, Have You Had Close Contact With A Laboratory-confirm ed COVID-19 While That Case Was Ill? No [email or web address] Information n ot available 02/18/2021 In The 14 Days Before Symptom Onset, Have You Had Close Contact With A Person Who Is Under Investigation For COVID-19 While That Person Was Ill? No [email or web address] Information not available 02/18/2021 Have You Been To An Area Known To Be High Risk For COVID-19? No [email or web address] Information not available 02/18/2021 Are You Deaf Or Do You Have Serious Difficulty Hearing? No Information not available 02/18/2021 What Type Of Diet Are You Following? REGULAR [email or web address] Information n ot available 02/18/2021 What Is The Highest Grade Or Level Of School You Have Completed Or The Highest Degree You Have Received? 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 No Information not available 02/18/2021 Have You Ever Been Counseled For Unhealthy Alcohol Use? No [email or web address] Information not available 02/18/2021 Do You Use Protection During Sex? No [email or web address] Information not available 02/18/2021 Do You Use Your Seat Belt Or Car Seat Routinely? Yes [email or web address] Information not available 02/18/2021 Do You Have Smoke And Carbon Monoxide Detectors In Your Home? Yes [email or web address] Information not available 02/18/2021 How Much Tobacco Do You Smoke? No Information not available 02/18/2021 Do You Feel Stressed (tense, Restless, Nervous, Or Anxious, Or Unable To Sleep At Night)? [id number] Information not available 10/29/2023 Do You Use Any Illicit Or Recreational Drugs? No [email or web address] Information not available 02/18/2021 Do You Use Sunscreen Routinely? Yes [email or web address] Information not available 02/18/2021 Has Tobacco Cessation Counseling Been Provided? No Information not available 02/18/2021 Have You Used IV Drugs? No Information not available 10/29/2023 Do You Or Have You Ever Used Any Other Forms Of Tobacco Or Nicotine? No [email or web address] Information not available 02/18/2021 Sex: Unknown Functional Status Question Answer Note LastModified by Organization D etails LastModified Time Are you able to walk? YESWOREST [email or web address] Information not available 02/18/2021 What is your exercise level? Moderate Information not available 10/29/2023 Mental Status None recorded. Family History Relationship Description Onset Age of this Age Resolved Age Notes LastModified by Organization Details LastModified Time Unspecified Relation Family history unknown [email or web address] Not available 02/18 11:56:40 Unspecified Relation Suspected endometrial cancer matern al great grandm a Not available 05/02/2024 10:08:07 Maternal Grandmother Malignant neoplasm of liver Not available 2024 10:08:07 Medical History Condition Response Allergies (Food, seasonal, environmental ) N Other N Drug/Latex Allergies/Reactions N Blood Transfusion N Breast Cancer N Dermatologic Disorders N Lung Disease N Defects or Inherited Disease N Breast Problem N Gestational Diabetes N Hematologic disorders N Anesthesia Complications N History of STI N Deep Vein Thrombosis N Polycystic ovary syndrome N Anxiety Disorder N Autoimmune disease N Arthritis N Polyps N Infertility N Acid Reflux (GERD) N History of abnormal pap N Cancer N Varicosities N Stroke N Neurologic/Epilepsy N Endometriosis N High Cholesterol N Fibromyalgia N Headaches N Kidney Disease N Heart Problems N Thyroid Problems N Kidney or Bladder Problems N GI Problems N Eating Disorder [...] SNOMED-CT Code Diagnosis ICD10 Code Diagnosis Note [id number] Gabrielle HardenILANA [place] [address],[place] [address] 02/18/2021 11:49:42 02/18/2021 13:01:11 Gynecologic examination 07019046 Z01.419 Amenorrhea 00520663 N91. 2 [id number] Sumi Boone [place] [address],[place] [address] 02/18/2021 11:51:46 02/18/2021 13:12:22 Uncertain viability of 767980637 O36.80X9 Z3A.00 [id number] Sirena Christopher [place] [address],[place] [address] 02/23/2021 16:35:27 02/23/2021 16:56:59 Gonorrhea 61375982 A54.9 [id number] Chen Pringle [place] [address],[place] [address] 10/15/2023 11:57:38 10/15/2023 12:24:14 Gestation period, 8 weeks 77891595 O09.291 O36.80X0 Z3A.08 [id number] Kerrie Cotterbri [place] [address],[place] [address] 10/29/2023 15:27:58 10/29/2023 15:54:26 [id number] Binu Singh MD [place] [address],[place] [address] 10/29/2023 15:28:24 10/30/2023 03:10:53 Nausea and vomiting 64350361 R11.2 this patient is a 31-year-ol d [...] care in total. Routine an tenatal care 412400833 Z34.90 [id number] [facility] [address],[place] [address] 11/08/2023 09:32:03 11/08/2023 10:05:33 screening 218367935 Z36.82 Z3A.12 [id number] Binu Singh MD [place] [address],[place] [address] 11/08/2023 09:32:40 11/08/2023 11:12:00 Routine care 409886946 Z34.90 [id number] Binu Singh MD [place] [address],[place] [address] 12/04/2023 10:06:06 12/04/2023 10:58:42 Urinary symptoms 674350867 R39.9 Routine an tenatal care 374844493 Z34.90 [id number] [facility] [address],[place] [address] 01/01/2024 09:28:52 01/01/2024 10:33:21 screening for malformation 408832305 Z36.3 Z3A.20 [id number] Binu Singh MD [place] [address],[place] [address] 01/01/2024 09:31:14 01/01/2024 11:01:13 Routine care 995594543 Z34.[id number] [facility] [address],[place] [address] 01/29/2024 09:35:21 01/29/2024 10:11:34 condition affecting obstetrical care of mother 911921914 O35.8XX0 Z3A.24 [id number] Jessica Samir [place] [address],[place] [address] 01/29/2024 09:35:40 01/29/2024 11:18:04 Routine care 602953555 Z34.[id number] [facility] [address],[place] [address] 02/28/2024 09:12:56 02/28/2024 10:03:45 condition affecting obstetrical care of mother 264594002 O35.8XX0 Z3A.28 [id number] Binu Singh MD [place] [address],[place] [address] 02/28/2024 09:15:40 02/28/2024 10:40:49 Routine care [id number] Z34.90 [id number] Binu Singh MD [place] [address],[place] [address] 03/11/2024 12:11:01 03/11/2024 13:24:11 Routine care [id number] Z34.[id number] [facility] [address],[place] [address] 03/27/2024 10:24:00 03/27/2024 11:07:58 condition affecting obstetrical care of mother [id number] O35.8XX0 Z3A.32 [id number] Binu Singh MD [place] [address],[place] [address] 03/27/2024 10:24:15 03/27/2024 11:54:22 Urinary symptoms [id number] R39.9 Routine an tenatal care [id number] Z34.90 [id number] Binu Singh MD [place] [address],[place] [address] 04/08/2024 09:43:41 04/08/2024 10:29:50 Routine care [id number] Z34.90 [id number] Jessica Dawson [place] [address],[place] [address] 1 04/18/2024 12:06:40 05/09/2024 14:23:04 growth restriction [id number] O36.5999 [id number] [facility] [address],[place] [address] 04/18/2024 12:07:10 04/18/2024 14:44:58 Cholestasis of [id number] O26.613 Z3A.35 [id number] Binu Singh MD [place] [address],[place] [address] 04/18/2024 12:07:48 04/19/2024 21:40:50 [id number] [facility] [address],[place] [address] 04/22/2024 09:58:48 04/22/2024 12:01:38 Cholestasis of [id number] O26.613 O36.5939 Z3A.36 [id number] Binu Singh MD [place] [address],[place] [address] 04/22/2024 09:59:44 04/22/2024 14:19:10 Routine care [id number] Z34.90 [id number] Jessica Dawson [place] [address],[place] [address] 1 04/22/2024 10:00:07 04/23/2024 17:11:40 growth restriction [id number] O36.5999 [id number] [facility] [address],[place] [address] 04/25/2024 14:17:44 04/25/2024 15:13:59 growth restriction [id number] O36.5999 [id number] [facility] [address],[place] [address] 05/02/2024 09:28:58 05/05/2024 10:46:14 growth restriction [id number] O36.5999 [id number] Binu Singh MD [place] [address],[place] [address] 05/02/2024 10:08:04 05/02/2024 10:26:12 Routine care [id number] Z34.90 [id number] LORIN ATWOOD MD [place] [address],[place] [address] 05/07/2024 10:24:03 05/08/2024 05:27:44 Routine care [id number] Z34.83 - continue PNV- will schedule 39 week induction [id number] Binu Singh MD [place] [address] [address] 05/14/2024 16:58:20 05/14/2024 17:43:26 Routine care [id number] Z34.90 Health Concerns Section Related Observation LastModified by Organization Detai ls LastModified Time None Recorded Concern Status LastModified by Organization Details LastModified Time None Recorded Advance Directives Directive N: Payers Encounter Date Sequence Insurance Name Policy Number Policy Pradhan Covered Member ID Pradhan Member ID Guarantor Name 04/25/2024 1 [facility] ON OR AFTER 09/09/20 (MEDICAID REPLACEMENT - HMO) Shi Tovar [id number] Shi L La 05/02/2024 1 [facility] ON OR AFTER 09/09/20 (MEDICAID REPLACEMENT - HMO) Shi Knbharati [id number] Shi L La 05/02/2024 1 [facility] ON OR AFTER 09/09/20 (MEDICAID REPLACEMENT - HMO) Shi Thomasarr [id number] Shi L La 05/07/2024 1 [facility] ON OR AFTER 09/09/20 (MEDICAID REPLACEMENT - HMO) Shi aL [id number] Shi L La 05/14/2024 1 [facility] ON OR AFTER 09/09/20 (MEDICAID REPLACEMENT - HMO) Shi Thomasarr [id number] Shi L La OBGyn Episode Ob Episode Information Episode Created Date Number of Fetuses Patient Bloodtype Patient rh Status Prepregnancy Weight lbs Domestic Partner Domestic Partner Phone Father Name Ginner Status 11/08/19 24 1 O Positive 130 Mandy an Marva s OPEN Fetus Data First Name Last Name Admitted to NICU Weight (g) Sex Living Outcome Pediatric Complications Fetus ID Race Codes Race Delivery Type [id number] Problems Problem Notes Probable cholestasis. NL jackie e acids but symptomatic and symptoms relieved with Ursodiol. Per SB, pt scheduled for twice wkly testing and will repeat bile acids on 04/18/24. MAKENZIE, RN pt rpt labs 04/22 OB visit [facility] referral faxed 04/22/24 Scheduled [facility] 04/29/24 1030 Level II US and consult consider IOL @ 39wks RPT bile acidsIOL 05/15 0500 Problem Name Start Date End Date Resolution Snomed Code Not e Dilatation of renal pelvis [id number] NEEDS RENAL ULTRASOUND WITHIN 48 HOURSMonitor urine output and blood pressure during hospital stay -renal us at greater than 48 hrs growth restriction [id number] 04/22 us EFW 8% HC <1% AC 9% referral faxed 04/22/24 Scheduled [facility] 04/29/24 1030 Level II US and consult Cardiac finding [id number] ECHO GENIC INTRACARDIAC FOCUS Marijuana user [id number] Rich Calculation Initial Rich Date Initial Exam [...] Weight in lbs Pre/Post Dialysis Refused Weight 130.890064456370 BP Diastolic BP Location Tested BP Systolic [...] Type Weight in lbs Pre/Post Dialysis Refused 134.869332603228 BP Diastolic BP Location Tested BP Systolic [...] Type Weight in lbs Pre/Post Dialysis Refused 139.776517441351 BP Diastolic BP Location Tested BP Systolic [...] Type Weight in lbs Pre/Post Dialysis Refused 145.0506514482 BP Diastolic BP Location Tested BP Systolic [...] Type Weight in lbs Pre/Post Dialysis Refused 151.500960995302 BP Diastolic BP Location Tested BP Systolic [...] Type Weight in lbs Pre/Post Dialysis Refused 153.766412964713 BP Diastolic BP Location Tested BP Systolic [...] Type Weight in lbs Pre/Post Dialysis Refused 156.681560445203 BP Diastolic BP Location Tested BP Systolic [...] Weight in lbs Pre/Post Dialysis Refused Weight 159.076314391912 BP Diastolic BP Location Tested BP Systolic BP Type 78 L arm 137 sitting Fetus Heart Rate Present A 158 Fetus Movement A Yes Comments no complaints, no problems, routine care, no contractions, no vaginal bleeding, no loss of fluid, no cramping Flowsheet Date 04/18/2024 Quiroz Score Blood Edema Fundus Height Fundus Units Glucose Ketones Leukocytes Nitrite Labor Signs Protein Cervic Dilation Cervic Effacement Cervic Station Type Weight in lbs Pre/Post Dialysis Refused BP Diastolic BP Location Tested BP Systolic BP Type Fetus Heart Rate Present Fetus Movement Comments Flowsheet Date 04/18/2024 Quiroz Score Blood Edema Fundus Height Fundus Units Glucose Ketones Leukocytes Nitrite Labor Signs Protein Cervic Dilation Cervic Effacement Cervic Station Type Weight in lbs Pre/Post Dialysis Refused BP Diastolic BP Location Tested BP Systolic BP Type Fetus Heart Rate Present Fetus Movement Comments Flowsheet Date 04/18/2024 Quiroz Score Blood Edema Fundus Height Fundus Units Glucose Ketones Leukocytes Nitrite Labor Signs Protein Cervic Dilation Cervic Effacement Cervic Station Type Weight in lbs Pre/Post Dialysis Refused BP Diastolic BP Location Tested BP Systolic BP Type Fetus Heart Rate Present Fetus Movement Comments Flowsheet Date 04/22/2024 Quiroz Score Blood Edema Fundus Height Fundus Units Glucose Ketones Leukocytes Nitrite Labor Signs Protein Cervic Dilation Cervic Effacement Cervic Station Type Weight in lbs Pre/Post Dialysis Refused BP Diastolic BP Location Tested BP Systolic BP Type Fetus Heart Rate Present Fetus Movement Comments Flowsheet Date 04/22/2024 Quiroz Score Blood Edema Fundus Height Fundus Units Glucose Ketones Leukocytes Nitrite Labor Signs Protein Cervic Dilation Cervic Effacement Cervic Station Type Weight in lbs Pre/Post Dialysis Refused Weight 160.871907969623 BP Diastolic BP Location Tested BP Systolic BP Type 80 L arm 128 sitting Fetus Heart Rate Present Fetus Movement A Yes Comments Flowsheet Date 04/22/2024 Quiroz Score Blood Edema Fundus Height Fundus Units Glucose Ketones Leukocytes Nitrite Labor Signs Protein Cervic Dilation Cervic Effacement Cervic Station Type Weight in lbs Pre/Post Dialysis Refused Weight 160.770885046973 BP Diastolic BP Location Tested BP Systolic BP Type 80 L arm 128 sitting Fetus Heart Rate Present A 144 Fetus Movement Comments Patient has marked change in growth. She is falling off the growth curve quickly. Normal umbilical artery Doppler flow study. Reassuring testing. To see MFM within a week. Patient may have cholestasis. She had itching of her hands and Plantar surfaces of her feet. normal cholestasis labs previously, to repeat today. Flowsheet Date 04/25/2024 Quiroz Score Blood Edema Fundus Height Fundus Units Glucose Ketones Leukocytes Nitrite Labor Signs Protein Cervic Dilation Cervic Effacement Cervic Station Type Weight in lbs Pre/Post Dialysis Refused Weight 162.984493038061 BP Diastolic BP Location Tested BP Systolic BP Type 81 L arm 125 sitting Fetus Heart Rate Present Fetus Movement Comments Flowsheet Date 05/02/2024 Quiroz Score Blood Edema Fundus Height Fundus Units Glucose Ketones Leukocytes Nitrite Labor Signs Protein Cervic Dilation Cervic Effacement Cervic Station Type Weight in lbs Pre/Post Dialysis Refused BP Diastolic BP Location Tested BP Systolic BP Type Fetus Heart Rate Present Fetus Movement Comments Flowsheet Date 05/02/2024 Quiroz Score Blood Edema Fundus Height Fundus Units Glucose Ketones Leukocytes Nitrite Labor Signs Protein Cervic Dilation Cervic Effacement Cervic Station 2cm 30% -3 Type Weight in lbs Pre/Post Dialysis Refused 165.497725205782 BP Diastolic BP Location Tested BP Systolic BP Type 87 L arm 135 sitting Fetus Heart Rate Present A 145 Fetus Movement A Yes Comments no complaints, no problems, routine care, no contractions, no vaginal bleeding, no loss of fluid, no cramping Flowsheet Date 05/07/2024 Quiroz Score Blood Edema Fundus Height Fundus Units Glucose Ketones Leukocytes Nitrite Labor Signs Protein Cervic Dilation Cervic Effacement Cervic Station neg none Type Weight in lbs Pre/Post Dialysis Refused Weight 165.887024030531 BP Diastolic BP Location Tested BP Systolic BP Type 85 L arm 138 sitting Fetus Heart Rate Present A 145 Fetus Movement A Yes Comments Patient c/o Marcio Kincaid an d slight swelling in feet. No longer taking ursodiol, itching has resolved. Good movement. No cramping or bleeding. Would like 39 week EIL, will send order to schedule with Dr. Singh. Labor precautions reviewed. Flowsheet Date 05/14/2024 Quiroz Score Blood Edema Fundus Height Fundus Units Glucose Ketones Leukocytes Nitrite Labor Signs Protein Cervic Dilation Cervic Effacement Cervic Station Type Weight in lbs Pre/Post Dialysis Refused Weight 165.023923682718 BP Diastolic BP Location Tested BP Systolic BP Type 92 L arm 133 sitting Fetus Heart Rate Present A 135 Present Fetus Movement A Yes Comments no complaints, no problems, routine care, no contractions, no vaginal bleeding, no loss of fluid, no cramping induction of labor tomorrow Menstrual History Last Menstrual Date Menses Monthly [...] Domestic Partner Domestic Partner Phone Father Name Ginner Status 11/08/19 24 1 CLOSED Fetus Data First Name Last Name Admitted to NICU Weight (g) Sex Living Outcome Pediatric Complications Fetus ID Race Codes Race Delivery Type , Spontane ous [id number] Rich Calculation Initial Rich Date Initial Exam [...]
--- OUTSIDE RECORDS SUMMARY | 2024-05-15 04:56 | XMS_ITS | Clinical Summary ---
Author Organization [facility] Address [address] [place] [address] Care Team Providers Care Quill Buncher And Sorter Name Role Phone Unavailable Primary Care Provider Unavailabl e Source Comments [facility],non-owned Affiliates and Associated Physician Practices is amultiple site organization consisting of ambulatory clinics and hospital sitesin [place], [place], [place] and [place]. This disclosure is being madepursuant to the Care Everywhere program and may not contain all information available regarding this patient. Last updated 17.[facility] Allergies No known active allergies Medications * Be aware that medications may not be up to date on this document. Alwaysverify current medications with the patient. Medication Sig Dispensed Refills Start Date End Date Status Vit-DSS-Fe Fum-FA ( vitamin with iron) tabletIndications:Pre gnancy Take 1 (one) tablet by mouth once daily Reasons: Active Encounters Date Type Department Care Team Description 04/29/2024 10:51 AM TRANSISTOR TESTER - 04/29/2024 11:59 PM TRANSISTOR TESTER Hospital Encounter [facility] [address] [place] [id number] Shaye Ennis MD Discharge Disposition: Home or Self Care 04/29/2024 10:30 AM TRANSISTOR TESTER - 04/29/2024 10:[address] [facility] Hospital Encounter [facility] [address] [place] [address] Shaye Ennis MD Discharge Disposition: Home or Self Care 04/29/2024 Travel from Last 3 Months Social History Tobacco Use Types Packs/Day Years Used Date Smoking Tobacco: Never Smokeless Tobacco: Never Tobacco Cessation:Counseling Given: Not Answered Alcohol Use Standard Drinks/Week Comments Not Currently 0 (1 standard drink = 0.6 oz pur e alcohol) Estimated Date of Delivery Comme nts Yes 05/20/2024 Based on last me nstrual period of 08/14/2023 Sex and Gender Information Value Date Recorded Sex Assigned at Not on file Gender Identity Not on file Sexual Orientation Not on file Last Filed Vital Signs Vital Sign Reading Time Taken Comments Blood Pressure 124/83 04/29/2024 11:37 AM TRANSISTOR TESTER Pulse 77 04/29/2024 11:37 AM TRANSISTOR TESTER Temperature - - Respiratory Rate - - Oxygen Saturation - - Inhaled Oxygen Concentration - - Weight 73 kg (161 lb) 04/29/2024 11:37 AM TRANSISTOR TESTER Height 165.1 cm (5' 5 ) 04/29/2024 11:37 AM TRANSISTOR TESTER Body Mass Index 26.79 04/29/2024 11:37 AM TRANSISTOR TESTER Plan of Treatment Health Maintenance Due Date Last Done Comments HIV SCREENING 11/28/2011 HEPATITIS C SCREENING 11/23/2014 DTAP/TDAP/TD VACCINES (1 - Tdap) 11/28/2015 HEPATITIS B VACCINE (1 of 3 - 19+ 3-dose series) 11/28/2015 COVID-19 VACCINE ( - 2023-2 5 season) 2023 INFLUENZA VACCINE (#1) 2023 12/18/2008 OB-ONE HOUR GLUCOSE 02/12/2024 OB-TDAP CURRENT 02/19/2024 OB-RHOGAM INJECTION 02/26/2024 DEPRESSION SCREENING 03/12/2024 OB-GROUP B STREP SCREEN 04/15/2024 PAP SMEAR 10/28/2026 10/29/2023, 02/18/2021, 02/18/2021 ZOSTER VACCINE (1 of 2) 2046 HIB VACCINE Aged Out No longer eligi ble based on patient's age to complete this topic HPV VACCINE Aged Out No longer eligi ble based on patient's age to complete this topic MENINGOCOCCAL (Group B) VACCINE Aged Out No longer eligible b ased on patient's age to complete this topic MENINGOCOCCAL VACCINE Aged Out No britt celia eligible based on patient's age to complete this topic PNEUMOCOCCAL VACCINE Aged Out No long er eligible based on patient's age to complete this topic Respiratory Syncytial Virus (RSV) Vaccine Pt: or over 60 yrs (No Doses Required) Completed Procedures Procedure Name Priority Date/Time Associated Diagnosis Comments SONOGRAM - COMPLETE Routine 04/29/2024 1 0:42 AM TRANSISTOR TESTER SGA (small for gestational age) (HCC) Small head circumference Cholestasis during , antepartum (HCC) 37 weeks gestation of ([facility]) from Last 3 Months Results * SONOGRAM - COMPLETE (04/29/2024 10:42 AM TRANSISTOR TESTER) Linked Results Indication ======== Cholestasis: Bile Acids 3 on 04/22 SGA Fetus on Outside Scan History ====== OB History 2. Para 0 [id number] Lab Tests Test Date Result NIPT Low risk, Female Maternal Assessment Physical Exam Height 165 cm, 5 ft 5 in. Weight 73 kg, 161 lb. Initial weight 73 kg, 160 lb. BMI 26.79 kg/m . Initial BMI 26.63 kg/m . Weight gain 0 kg, 1 lb Method ====== Transabdominal ultrasound. View: Sufficient ========= Granados . Number of fetuses: 1 Dating ====== Date Details Gest. age SAMUEL Stated SAMUEL 37 w + 0 d 05/20/2024 Assigned dating based on stated SAMUEL, selected on 04/29/2024 37 w + 0 d 05/20/2024 General Evaluation Cardiac activity present. FHR 151 bpm. Presentation: cephalic Placenta: Placental site: anterior Umbilical cord: Cord vessels: 3 vessel cord. Insertion site: normal insertion Amniotic Fluid Assessment === Amount of AF: normal MVP 5.6 cm. SOPHY 15.5 cm. Q1 5.6 cm, Q2 4.3 cm, Q3 1.2 cm, Q4 4.4 cm Biophysical Profile 2: breathing movements 2: Gross body movements 2: tone 2: Amniotic fluid volume NST: reactive 12/19 Biophysical profile score Non Stress Test NST interpretation: reactive. Baseline FHR 130 bpm. Baseline variability: moderate. Accelerations: present. Uterine activity: present, q 3-6 minutes, patient comfortable Biometry BPD 85.5 mm 34w 3d 7% Hadlock HC 304.1 mm 33w 6d <1% Hadlock AC 314.5 mm 35w 3d 19% Hadlock Femur 67.8 mm 34w 6d 6% Hadlock HC / AC 0.97 Weight Calculation: EFW 2,561 g 12% Hadlock EFW (lb,oz) 5 lb 10 oz EFW by Hadlock ([id number]) appropriate Growth Overview Exam date GA BPD (mm) HC (mm) AC (mm) FL (mm) HL (mm) EFW (g) 04/29/2024 37w 0d 85.5 7% 304.1 <1% 314.5 19% 67.8 6% 2561 12% Anatomy The following structures appear abnormal: Abdomen Kidneys. The following structures appear normal: Head / Neck Cranium. Cavum septi pellucidi. Cerebellum. Cisterna magna. Face Lips. Heart / Thorax RVOT view. LVOT view. 3-vessel view. 8-aygdhr-rnivzvk view. Situs. Aortic arch view. Ductal arch view. Great vessels. Diaphragm. Abdomen Stomach. Bladder. The following structures could not be adequately visualized: Head / Neck Lateral ventricles. Choroid plexus. Midline falx. Face Profile. Nose. Heart / Thorax 4-chamber view. Bicaval view. Right lung. Left lung. Abdomen Cord insertion. Genitals. Spine Thoracic spine. Lumbar spine. Sacral spine. Extremities / Skeleton Arms. Hands. Legs. Feet. The following structures were visualized: Spine Cervical spine. Impression ========= This is the first exam at our facility at this late gestational age. Single, live intrauterine at 37w 0d Amniotic fluid volume: normal size is appropriate for the gestational age The HC is at -2SD of the mean. Biophysical profile: 12/19 UTD A2-3 Right renal pelvis measures 1.18cm - Dilation of the calyces is seen. - Normal bladder and left kidney are seen. No other abnormalities are seen. anatomic survey is limited by late gestational age. Follow-up ======== May continue testing as planned. Growth US in 2 weeks, if undelivered. Recommendations for evaluation of 's kidneys, per the 's weight loss counselor: a. Ok to deliver at hospital of parents' choosing b. Monitor urine output during hospital stay c. Monitor blood pressure during hospital stay d. Schedule a renal ultrasound at greater than 48 hours after e. Our Pediatric Urology clinical nurse is available at See separate [facility] visit note. Coding ====== Procedures 03121: US Preg Uterus Detailed 87929: Biophysical Profile W [employer] PACS Anatomical Region Laterality Modality Other 04/29/2024 10:4 2 AM TRANSISTOR TESTER R Merlin Singh MD [facility] ORDERABLES from Last 3 Months Shi Tovar Personal/Family Self 1995
--- OUTSIDE RECORDS SUMMARY | 2024-05-15 04:56 | XMS_ITS | Referral Summary ---
Author Organization [facility] Address [address] [place] [address] Care Team Providers Care Footwear Stitcher Name Role Phone Unavailable Primary Care Provider Unavailabl e Source Comments [facility],non-owned Affiliates and Associated Physician Practices is amultiple site organization consisting of ambulatory clinics and hospital sitesin [place], [place], [place] and [place]. This disclosure is being madepursuant to the Care Everywhere program and may not contain all information available regarding this patient. Last updated 17.[facility] Encounters Date Type Department Care Team Description 04/29/2024 Travel 04/29/2024 10:51 AM DINKING MACHINE OPERATOR - 04/29/2024 11:59 PM [facility] Hospital Encounter [facility] [address] [place] [address] Shaye Ennis MD Discharge Disposition: Home or Self Care 04/29/2024 10:30 AM DINKING MACHINE OPERATOR - 04/29/2024 10:50 AM [facility] Hospital Encounter [facility] [address] [place] [id number] Shaye Ennis MD Discharge Disposition: Home or Self Care from Last 3 Months Allergies No known active allergies Medications * Be aware that medications may not be up to date on this document. Alwaysverify current medications with the patient. Medication Sig Dispensed Refills Start Date End Date Status Vit-DSS-Fe Fum-FA ( vitamin with iron) tabletIndications:Pre gnancy Take 1 (one) tablet by mouth once daily Reasons: Active Social History Tobacco Use Types Packs/Day Years [...] Comments Blood Pressure 124/83 04/29/2024 11:37 AM DINKING MACHINE OPERATOR Pulse 77 04/29/2024 11:37 AM DINKING MACHINE OPERATOR Temperature - - Respiratory Rate - - Oxygen Saturation - - Inhaled Oxygen Concentration - - Weight 73 kg (161 lb) 04/29/2024 11:37 AM DINKING MACHINE OPERATOR Height 165.1 cm (5' 5 ) 04/29/2024 11:37 AM DINKING MACHINE OPERATOR Body Mass Index 26.79 04/29/2024 11:37 AM DINKING MACHINE OPERATOR Plan of Treatment Not on file Procedures Procedure Name Priority Date/Time Associated Diagnosis Comments SONOGRAM - COMPLETE Routine 04/29/2024 1 0:42 AM DINKING MACHINE OPERATOR SGA (small for gestational age) (HCC) Small head circumference Cholestasis during , antepartum (HCC) 37 weeks gestation of ([facility]) from Last 3 Months Results * SONOGRAM - COMPLETE (04/29/2024 10:42 AM DINKING MACHINE OPERATOR) Linked Results Indication ======== Cholestasis: Bile Acids 3 on 04/22 SGA Fetus on Outside Scan History ====== OB History 2. Para 0 [id number] Lab Tests Test Date Result NIPT Low [...] 5 lb 10 oz EFW by Hadlock ([id number]) appropriate Growth Overview Exam date GA BPD [...] Thorax RVOT view. LVOT view. 3-vessel view. 8-gzuaqr-gqtffpf view. Situs. Aortic arch view. Ductal arch [...] for evaluation of 's kidneys, per the infant's outreach associate: a. Ok to deliver at hospital of parents' choosing b. Monitor urine output during hospital stay c. Monitor blood pressure during hospital stay d. Schedule a renal ultrasound at greater than 48 hours after e. Our Pediatric Urology clinical nurse is available at See separate [facility] visit note. Coding ====== Procedures 05067: US Preg Uterus Detailed 55650: Biophysical Profile W NST [facility] [employer] PACS Anatomical Region Laterality Modality Other 04/29/2024 10:4 2 AM DINKING MACHINE OPERATOR R Merlin Singh MD [facility] ORDERABLES from Last 3 Months Shi Tovar Personal/Family Self 1995
--- OUTSIDE RECORDS SUMMARY | 2024-05-15 04:56 | XMS_ITS | Continuity of Care Document ---
Author Organization [facility] Address [address] [place] [address] Assessment Encounter Date Assessment Date Assessment LastModified by Organization Details LastModified Time 05/14/2024 05/14/2024 Patient is ___weeks . Discussed plan. Not available 05/14/2024 17:21:28 Plan of Treatment Reminders Order Date Submit Date Provider Last Modified By Organization Details Last Modified Time Details Appointments INDUCTION 2024 05:00A Silvia GARCIA MD Not available Not available Not available OB ROUTINE 2024 11:00A Silvia GARCIA MD Not available Not available Not available Lab None recorded. Referral None recorded. Procedures None recorded. Surgeries None recorded. Imaging None recorded. Medication Orders None recorded. Patient TargetsNo targets recorded. Patient InstructionsNo instructions recorded. Reason for Referral None Reported. Results Created Date Observation Date Name Description Value Unit Range Abnormal Flag Note LastModifiedBy Organization Detail LastModifiedTime 11/08/1911/08/2023 US, obste tric, nucha l trans lucen cy No observ ation record ed. [email or web address] [place] [address], [place], [address], 11/08/2023 10:04:59 11/08/19 24 11/08/2023 US, caden cedeño follo w-up No observ ation record ed. [address], [place], [address], 11/09/2023 11:12:34 01/01/2001/01/2024 US, obste tric, 2nd or 3rd trime ster No observ ation record ed. [facility] [address], [place], [address], 01/01/2024 18:08:54 01/01/20 24 01/01/2024 US, obste tric, follo w-up No observ ation record ed. [email or web address] [address], [place], [address], 01/02/2024 09:25:35 01/29/20 24 01/29/2024 US, obste tric, follo w-up No observ ation record ed. [email or web address] [place] [address], [place], [address], 01/29/2024 12:36:13 01/29/20 24 01/29/2024 US, obste tric, follo w-up No observ ation record ed. DAILY [address], [place], [address], 02/03/2024 12:28:00 02/28/20 24 02/28/2024 US, obste tric, follo w-up No observ ation record ed. [facility] [address], [place], [address], 02/28/2024 13:05:05 02/28/20 24 02/28/2024 US, obste tric, follo w-up No observ ation record ed. [email or web address] [address], [place], [address], 02/28/2024 21:33:51 03/27/19 25 03/27/2024 US, obste tric, follo w-up No observ ation record ed. [email or web address] [place] [address], [place], [address], 03/27/2024 13:12:00 01/16/20 25 03/27/2024 US, obste tric, follo w-up No observ ation record ed. [email or web address] [address], [place], [address], 04/01/2024 12:30:18 04/16/19 25 04/16/2024 non-s tress test No observ ation record ed. [address], [place], [address], 04/16/2024 18:24:58 04/18/19 25 04/18/2024 US, obste tric, bioph ysica l profi le + non-s tress test No observ ation record ed. [facility] [address], [place], [address], 04/18/2024 18:34:04 04/18/19 25 04/18/2024 US, obste tric, bioph ysica l profi le + non-s tress test No observ ation record ed. [email or web address] [address], [place], [address], 05/06/2024 15:22:57 04/22/19 25 04/22/2024 US, obste tric, follo w-up No observ ation record ed. [facility] [address], [place], [address], 04/22/2024 12:56:30 04/22/19 25 04/22/2024 US, obste tric, bioph ysica l profi le + non-s tress test No observ ation record ed. [facility] [address], [place], [address], 04/22/2024 12:56:41 04/22/19 25 04/22/2024 US, doppl er, umbil ical arter y veloc imetr y No observ ation record ed. [email or web address] [place] [address], [place], [address], 04/22/2024 12:56:54 04/22/19 25 04/22/2024 US, obste tric, follo w-up No observ ation record ed. [email or web address] [address], [place], [address], 04/22/2024 22:15:40 04/22/19 25 04/22/2024 non-s tress test No observ ation record ed. [place] [address], [place], [address], 04/22/2024 17:29:28 04/25/19 25 04/25/2024 non-s tress test No observ ation record ed. [email or web address] [place] [address], [place], [address], 04/25/2024 15:06:22 04/29/19 25 04/29/2024 US, obste tric, follo w-up No observ ation record ed. [facility] [address] [place], [address], 05/01/2024 23:43:33 04/29/19 25 04/29/2024 US, obste tric, follo w-up No observ ation record ed. [facility] [address] [place] [address], [place], [address], 05/01/2024 23:44:23 04/29/19 25 04/29/2024 US, obste tric, follo w-up No observ ation record ed. [facility] [address], [place], [address], 05/01/2024 23:49:50 04/29/19 25 04/29/2024 US, obste tric, follo w-up No observ ation record ed. [facility] [address] [facility], [place], [address], 05/01/2024 23:50:44 04/29/19 25 04/29/2024 US, obste tric, follo w-up No observ ation record ed. [email or web address] [facility] [address], [place], [address], 05/12/2024 21:57:08 04/29/19 25 04/29/2024 US, obste tric, follo w-up No observ ation record ed. [facility] [address] [facility], [place], [address], 05/02/2024 00:06:34 04/30/19 25 04/29/2024 US, obste tric, follo w-up No observ ation record ed. [facility] [address], [place], [address], 05/02/2024 00:09:56 05/02/19 25 05/02/2024 non-s tress test No observ ation record ed. [email or web address] [place] [address], [place], [address], 05/02/2024 19:33:00 05/05/19 25 05/05/2024 non-s tress test No observ ation record ed. [address], [place], [address], 05/08/2024 10:44:40 05/09/19 25 05/09/2024 non-s tress test No observ ation record ed. [place] [address], [place], [address], 05/09/2024 16:22:42 Result Notes None recorded. Problems Name Problem SNOMED Code Status Onset Date Resolution Date Notes Provider Name and Address Organization Details Recorded Time 96994174 Active 2023 Jessica Dawson [facility] 4 10:12:58 Marijuana user 659837455 Active Chana Garcia [facility] 4 15:56:38 Cardiac finding 372241321 Active ECHOGENIC INTRACARD IAC FOCUS Binu Garcia MD [address], [place], [address], [place] [facility] 4 10:50:00 Dilatatio n of renal pelvis 293435457 Active NEEDS RENAL ULTRASOUN D WITHIN 48 HOURS Monitor urine output and blood pressure during hospital stay -renal us at greater than 48 hrs Vane Burch [facility] 5 23:25:38 growth restricti on Active 04/22 EFW 8% HC <1% AC 9% referral faxed 04/22/24 Scheduled [facility] 04/29/24 1030 Level II US and consult Vane Burch [facility] 5 12:45:26 growth restricti on 85720254 Active 04/22 EFW 8% HC <1% AC 9% referral faxed 04/22/24 Scheduled [facility] 04/29/24 1030 Level II US and consult Vane Burch [facility] 5 12:45:26 Problem Notes None recorded. Procedures Surgical History Date Name Laterality Status Provider Name and Address Organization Details Recorded Time 11/08/2023 Date of Last Pap Smear completed Jessica Dawson [facility] 01/29/2024 10:26:50 Imaging Results None recorded. Procedure Notes None recorded. Medical Equipment None [...] Updated DateTime 05/14/2024 165.1 cm 27.5 kg/m2 54497.74 g 133 mm[Hg] 92 mm[Hg] Jessica Dawson [facility] 17:21:57 Social History Question Answer Notes LastModified by Organizat ion Details LastModified Time Tobacco Smoking Status Never Smoker Mary blair, [facility] 02/18/2021 12:08:17 Do You Have An Advance Directive? No Information n ot available 02/18/2021 What Is Your Level Of Alcohol Consumption? None Information not available 10/29/2023 If You Are , What Was Your Level Of Alcohol Consumption Prior To ? None [email or web address] Information not available 02/18/2021 Are You Blind Or Do You Have Difficulty Seeing? No [email or web address] Information n ot available 02/18/2021 What Is Your Level Of Caffeine Consumption? Occasional [email or web address] Information not available 02/18/2021 In The 14 Days Before Symptom Onset, Have You Had Close Contact With A Laboratory-confirm ed COVID-19 While That Case Was Ill? No [email or web address] Information n ot available 02/18/2021 In The 14 Days Before Symptom Onset, Have You Had Close Contact With A Person Who Is Under Investigation For COVID-19 While That Person Was Ill? No [email or web address] Information not available 02/18/2021 Have You Been To An Area Known To Be High Risk For COVID-19? No Information not available 02/18/2021 Are You Deaf Or Do You Have Serious Difficulty Hearing? No [email or web address] Information not available 02/18/2021 What Type Of Diet Are You Following? REGULAR [email or web address] Information n ot available 02/18/2021 What Is The Highest Grade Or Level Of School You Have Completed Or The Highest Degree You Have Received? 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 No [email or web address] Information not available 02/18/2021 Have You Ever Been Counseled For Unhealthy Alcohol Use? No [email or web address] Information not available 02/18/2021 Do You Use Protection During Sex? No [email or web address] Information not available 02/18/2021 Do You Use Your Seat Belt Or Car Seat Routinely? Yes [email or web address] Information not available 02/18/2021 Do You Have Smoke And Carbon Monoxide Detectors In Your Home? Yes [email or web address] Information not available 02/18/2021 How Much Tobacco Do You Smoke? No [email or web address] Information not available 02/18/2021 Do You Feel Stressed (tense, Restless, Nervous, Or Anxious, Or Unable To Sleep At Night)? [id number] Information not available 10/29/2023 Do You Use Any Illicit Or Recreational Drugs? No Information not available 02/18/2021 Do You Use Sunscreen Routinely? Yes [email or web address] Information not available 02/18/2021 Has Tobacco Cessation Counseling Been Provided? No [email or web address] Information not available 02/18/2021 Have You Used IV Drugs? No Information not available 10/29/2023 Do You Or Have You Ever Used Any Other Forms Of Tobacco Or Nicotine? No [email or web address] Information not available 02/18/2021 Sex: Unknown Functional Status Question Answer Note LastModified by Organization D etails LastModified Time Are you able to walk? YESWOREST [email or web address] Information not available 02/18/2021 What is your exercise level? Moderate Information not available 10/29/2023 Mental Status None recorded. Family History Relationship Description Onset Age of this Age Resolved Age Notes LastModified by Organization Details LastModified Time Unspecified Relation Family history unknown [email or web address] Not available 02/18 11:56:40 Unspecified Relation Suspected [...] SNOMED-CT Code Diagnosis ICD10 Code Diagnosis Note [id number] Jessica [facility] [address],[place] [address] 04/18/2024 12:06:40 05/09/2024 14:23:04 growth restriction 05585995 O36.5999 [id number] [facility] [address],[place] [address] 04/18/2024 12:07:10 04/18/2024 14:44:58 Cholestasis of 303142107 O26.613 Z3A.35 [id number] Binu Garcia MD [place] [address],[place] [address] 04/18/2024 12:07:48 04/19/2024 21:40:50 [id number] [place] [address],[place] [address] 04/22/2024 09:58:48 04/22/2024 12:01:38 Cholestasis of 780663796 O26.613 O36.5939 Z3A.36 [id number] Binu Garcia MD [place] [address],[place] [address] 04/22/2024 09:59:44 04/22/2024 14:19:10 Routine care 921092255 Z34.90 [id number] Jessica [facility] [address],[place] [address] 04/22/2024 10:00:07 04/23/2024 17:11:40 growth restriction 11486187 O36.5999 [id number] ANEL Chen [place] [address],[place] [address] 04/25/2024 14:17:44 04/25/2024 15:13:59 growth restriction 20955481 O36.5999 [id number] ANEL Chen [place] [address],[place] [address] 05/02/2024 09:28:58 05/05/2024 10:46:14 growth restriction 07054594 O36.5999 [id number] Binu Garcia MD [place] [address],[place] [address] 05/02/2024 10:08:04 05/02/2024 10:26:12 Routine care 799932551 Z34.90 [id number] LORIN ATWOOD MD [place] [address],[place] [address] 05/07/2024 10:24:03 05/08/2024 05:27:44 Routine care 021856310 Z34.83 - continue PNV- will schedule 39 week induction [id number] Binu Garcia MD [place] [address],[place] [address] 05/14/2024 16:58:20 05/14/2024 17:43:26 Routine care 840065219 Z34.90 Health Concerns Section Related Observation LastModified by Organization Detai ls LastModified Time None Recorded Concern Status LastModified by Organization Details LastModified Time None Recorded Payers Encounter Date Sequence Insurance Name Policy Number Policy Pradhan Covered Member ID Pradhan Member ID Guarantor Name 05/14/2024 1 [facility] ON OR AFTER 09/09/20 (MEDICAID REPLACEMENT - HMO) Shi Tovar [id number] Shi Tovar OBGyn Episode Ob Episode Information Episode Created Date Number of Fetuses Patient Bloodtype Patient rh Status Prepregnancy Weight lbs Domestic Partner Domestic Partner Phone Father Name Certified Shorthand Reporter Status 11/08/19 24 1 O Positive 130 Mandy an Summner s OPEN Fetus Data First Name Last Name Admitted to NICU Weight (g) Sex Living Outcome Pediatric Complications Fetus ID Race Codes Race Delivery Type [id number] Problems Problem Notes Probable cholestasis. NL jackie e acids but symptomatic and symptoms relieved with Ursodiol. Per SB, pt scheduled for twice wkly testing and will repeat bile acids on 04/18/24. MK, RN pt rpt labs 04/22 OB visit JG [facility] referral faxed 04/22/24 Scheduled [facility] 04/29/24 1030 Level II US and consult consider IOL @ 39wks RPT bile acidsIOL 05/15 0500 Problem Name Start Date End Date Resolution Snomed Code Not e Dilatation of renal pelvis 746384804 NEEDS RENAL ULTRASOUND WITHIN 48 HOURSMonitor urine output and blood pressure during hospital stay -renal us at greater than 48 hrs growth restriction 72523192 04/22 us EFW 8% HC <1% AC 9% referral faxed 04/22/24 [facility] 1030 Level II US and consult Cardiac finding 241388205 ECHO GENIC INTRACARDIAC FOCUS Marijuana user [id number] Rich Calculation Initial Rich Date Initial Exam [...] Gestation 0 [email or web address] 11/08/2023 05/21/19 25 0 Pre- Flowsheet Flowsheet Date 11/08/2023 Quiroz Score Blood Edema Fundus Height Fundus Units Glucose Ketones Leukocytes Nitrite Labor Signs Protein Cervic Dilation Cervic Effacement Cervic Station Type Weight in lbs Pre/Post Dialysis Refused Weight 130.936356527894 BP Diastolic BP Location Tested BP Systolic [...] Type Weight in lbs Pre/Post Dialysis Refused 134.357110396783 BP Diastolic BP Location Tested BP Systolic [...] Type Weight in lbs Pre/Post Dialysis Refused 139.737785316799 BP Diastolic BP Location Tested BP Systolic [...] Type Weight in lbs Pre/Post Dialysis Refused 145.8458347837 BP Diastolic BP Location Tested BP Systolic [...] Type Weight in lbs Pre/Post Dialysis Refused 151.778762944880 BP Diastolic BP Location Tested BP Systolic [...] Type Weight in lbs Pre/Post Dialysis Refused 153.791185645167 BP Diastolic BP Location Tested BP Systolic [...] Type Weight in lbs Pre/Post Dialysis Refused 156.906359620996 BP Diastolic BP Location Tested BP Systolic [...] Weight in lbs Pre/Post Dialysis Refused Weight 159.354231456568 BP Diastolic BP Location Tested BP Systolic [...] Weight in lbs Pre/Post Dialysis Refused Weight 160.789716700646 BP Diastolic BP Location Tested BP Systolic BP Type 80 L arm 128 sitting Fetus Heart Rate Present Fetus Movement A Yes Comments Flowsheet Date 04/22/2024 Quiroz Score Blood Edema Fundus Height Fundus Units Glucose Ketones Leukocytes Nitrite Labor Signs Protein Cervic Dilation Cervic Effacement Cervic Station Type Weight in lbs Pre/Post Dialysis Refused Weight 160.956294414141 BP Diastolic BP Location Tested BP Systolic [...] Weight in lbs Pre/Post Dialysis Refused Weight 162.208482260520 BP Diastolic BP Location Tested BP Systolic [...] Type Weight in lbs Pre/Post Dialysis Refused 165.885724357634 BP Diastolic BP Location Tested BP Systolic [...] Weight in lbs Pre/Post Dialysis Refused Weight 165.087604072961 BP Diastolic BP Location Tested BP Systolic BP Type 85 L arm 138 sitting Fetus Heart Rate Present A 145 Fetus Movement A Yes Comments Patient c/o Marcio Kincaid an d slight swelling in feet. No longer taking ursodiol, itching has resolved. Good movement. No cramping or bleeding. Would like 39 week EIL, will send order to schedule with Dr. Garcia. Labor precautions reviewed. Flowsheet Date 05/14/2024 Quiroz Score Blood Edema Fundus Height Fundus Units Glucose Ketones Leukocytes Nitrite Labor Signs Protein Cervic Dilation Cervic Effacement Cervic Station Type Weight in lbs Pre/Post Dialysis Refused Weight 165.377088931564 BP Diastolic BP Location Tested BP Systolic [...]
--- OUTSIDE RECORDS SUMMARY | 2024-05-15 04:56 | XMS_ITS | Patient Health Summary ---
Author Organization [facility] Address [address] [place] [address] Care Team Providers Care Facilities Technician Name Role Phone Unavailable Primary Care Provider Unavailabl e Note from [facility],non-owned Affiliates and Associated Physician Practices is amultiple site organization consisting of ambulatory clinics and hospital sitesin [place], [place], [place] and [place]. This disclosure is being madepursuant to the Care Everywhere program and may not contain all information available regarding this patient. Last updated 17.[facility] [employer] Allergies No known active allergies Medications * Be aware that medications may not be up to date on this document. Alwaysverify current medications with the patient. * Vit-DSS-Fe Fum-FA ( vitamin with iron) tablet Take 1 (one) tablet by mouth once daily Reasons: Social History Tobacco Use Types Packs/Day Years [...] Comments Blood Pressure 124/83 04/29/2024 11:37 AM [employer] [employer] [facility] Pulse 77 04/29/2024 11:37 AM [employer] [facility] Temperature - - Respiratory Rate - - Oxygen Saturation - - Inhaled Oxygen Concentration - - Weight 73 kg (161 lb) 04/29/2024 11:37 AM [employer] [facility] Height 165.1 cm (5' 5 ) 04/29/2024 11:37 AM [employer] [facility] Body Mass Index 26.79 04/29/2024 11:37 AM [employer] [facility] Procedures * SONOGRAM - COMPLETE(Performed 04/29/2024) Performed for SGA (small for gestational age) ([facility]), Small head circumference, Cholestasis during , antepartum ([facility]), 37 weeks gestation of ([facility]) Results * SONOGRAM - COMPLETE (04/29/2024 10:42 AM [employer]) Linked Results Indication ======== Cholestasis: Bile Acids 3 on 04/22 SGA Fetus on Outside Scan History ====== OB History 2. Para 0 [id number] Lab Tests Test Date Result NIPT Low [...] tone 2: Amniotic fluid volume NST: reactive 10/10 Biophysical profile score Non Stress Test NST [...] 5 lb 10 oz EFW by Hadlock ([id number]) appropriate Growth Overview Exam date [place] BPD [...] Thorax RVOT view. LVOT view. 3-vessel view. 5-nzcaht-jlwibko view. Situs. Aortic arch view. Ductal arch [...] evaluation of 's kidneys, per the infant's machine attendant: a. Ok to deliver at hospital of parents' choosing b. Monitor urine output during hospital stay c. Monitor blood pressure during hospital stay d. Schedule a renal ultrasound at greater than 48 hours after e. Our Pediatric Urology clinical nurse is available at See separate [facility] visit note. Coding ====== Procedures 86211: US Preg Uterus Detailed 62266: Biophysical Profile W NST [employer] PACS Anatomical Region Laterality Modality Other 04/29/2024 10:4 2 AM [employer] R Merlin Singh MD [facility] ORDERABLES
[2024-05-15 05:28] LABS: Basophils Percent Auto 0.3 % (0.2-1.2); Eosinophils Absolute Auto 0.1 K/mm3 (0-0.3); Hematocrit 37.8 % (37.0-47.0); Hemoglobin 12.7 g/dL (12.0-15.0); Immature Granulocyte Absolute 0.07 K/mm3 (0.00-0.031); Immature Granulocyte Percent A 0.7 % (0-0.5); Lymphocytes Absolute Auto 2.15 K/mm3 (0.9-3.2); Lymphocytes Percent Auto 21.7 % (18.3-44.2); Mean Corpuscular HGB Conc 33.6 g/dl (32-36); Mean Corpuscular Hemoglobin 31.1 pg (26-34); Mean Corpuscular Volume 92.6 fl (80-100); Mean Platelet Volume 12.8 fl (7.4-10.4); Monocytes Absolute Auto 0.8 K/mm3 (0.1-0.6); Neutrophils Absolute Auto 6.8 K/mm3 (1.3-6.7); Neutrophils Percent Auto 68.3 % (45.5-73.1); Platelet Count Result 207 k/mm3 (150-375); Red Blood Count 4.08 M/mm3 (4.2-5.4); Red Cell Distribution Width 13.2 % (11.5-14.5); White Blood Count 9.9 K/mm3 (4.5-10.0)
[2024-05-15] MEDS: LACTATED RINGERS 1,000 ML 125 ML IV CONT ×4 (05:35→19:48)
[2024-05-15] MEDS: OXYTOCIN 30 UNITS/NS 500 ML 30 UNITS/500 ML BAG IV CONT (05:35)
--- NOTE | 2024-05-15 05:38 | LDADM ---
This patient, Shi Tovar, was admitted to Labor/Delivery/Recovery 104 on 05/15/24 at 04:51. Plans for labor, pain management and were discussed with patient. Patient/family oriented to hospital policies and general routines including ID bracelet, bed and alarms, visiting hours, pain management, procedures, bathroom and other care routines, personal items, smoking policy, room service/diet and guest tray routines, infant security routines, and visiting hours. Patient/Family are encouraged to report perceived risks to care and to ask questions if they do not understand what they are told or what they should do. See OBIX for further documentation.
[2024-05-15 06:21] LABS: HIV 1/2 Ab P24 Ag Result Negative (Negative)
[2024-05-15 06:26] LABS: Syphilis IgG/IgM Antibody Negative (Negative)
--- NOTE | 2024-05-15 08:11 | WPDHPUPDATE1 ---
History and Physical Update Update Date/Time: 05/15/24 08:11 28-year-old primipara at 39 weeks gestation who presents for elective induction of labor. 2 cm, 80%, -2. Artificial rupture membranes-clear fluid. Active management of labor-Pitocin, AROM. Reassuring status. History and Physical has been reviewed, including an updated exam of the patient. There are NO changes in the patient's condition. Risks, benefits, and alternatives have been discussed and questions answered. Patient agrees to proceed with procedure.
--- NOTE | 2024-05-15 17:22 | PM.OBPNVD ---
OB - PN: Subj Subjective Date/time seen: 05/15/24 17:22 Interval history: No complaints, comfortable, reassuring heart tones, 7 cm. Epidural OB - PN: Obj Data Labs 05/15/24 05:22 Labs: Laboratory Results - last 24 hr 05/15/24 05:22 WBC 9.9 RBC 4.08 L Hgb 12.7 Hct 37.8 MCV 92.6 MCH 31.1 MCHC 33.6 RDW 13.2 Plt Count 207 MPV 12.8 H Immature Gran % (Auto) 0.7 H Neut % (Auto) 68.3 Lymph % (Auto) 21.7 Garland % (Auto) 8.0 Eos % (Auto) 1.0 Baso % (Auto) 0.3 Lymph # (Auto) 2.15 Garland # (Auto) 0.8 H Eos # (Auto) 0.1 Baso # (Auto) 0.0 Abs Immat Gran (auto) 0.07 H Absolute Neuts (auto) 6.8 H Absolute Nucleated RBC 0.000 Nucleated RBC % 0.0 Syphilis IgG/IgM Ab Negative HIV 1&2 Ab/P24 Ag 4thGn Negative Blood Type O Positive Antibody Screen Negative OB - PN A/P Time Spent With Patient Time: Total time spent is greater than 50% in coordination of care (as documented) at patient's floor/unit and/or counseling patient:
[2024-05-15] MEDS: ONDANSETRON INJ 4 MG/2 ML VIAL IV PUSH (19:16)
[2024-05-15] MEDS: diphenhydrAMINE HCl INJ 50 MG/ML VIAL 25 MG IV PUSH (20:16)
[2024-05-15] MEDS: AMPICILLIN 2 GM/NS 100 ML 2 GM/100 ML BAG IVPB (21:57)
[2024-05-15] MEDS: ACETAMINOPHEN 500 MG TABLET 1000 MG PO (21:58)
--- NOTE | 2024-05-15 23:25 | PM.OBPRVD ---
OB - Vaginal Delivery Note Procedure Delivery date: 05/15/24 Induction method: AROM and Per Pitocin Protocol Delivery monitor: External FHT and External Uterine Route of delivery: Episiotomy description: None Laceration Description: Perineal - 2nd Degree Delivery repair: vicryl Quantitative Blood Loss (ml): 300 Anesthesia type: Epidural Disposition: Floor Complications: No immediate complications
[2024-05-15] MEDS: OXYTOCIN 30 UNITS/NS 500 ML 30 UNITS/500 ML BAG 125 UNITS IV CONT (23:37)
[2024-05-16] VITALS (10 sets, daily range): BP systolic 115–144; BP diastolic 71–88; PULSE 88–110; RESP 16–18; TEMP 36.6–37.4; O2SAT 97–100
[2024-05-16] MEDS: WITCH HAZEL 40 PADS 1 PAD TOPICAL (02:00)
[2024-05-16] MEDS: BENZOCAINE 20% AER SPR (*SP) 56 GM CAN 1 SPRAY TOPICAL (02:00)
--- NOTE | 2024-05-16 02:12 | OBPPTRN ---
Patient transferred to post room #284 via wheelchair.. Support person present. Oriented to unit, room, information board, rooming in, admission packet and security measures. Patient verbalizes understanding.
[2024-05-16 05:25] LABS: Hemoglobin 10.2 g/dL (12.0-15.0)
[2024-05-16] MEDS: IBUPROFEN 600 MG TABLET PO ×2 (08:02→16:12)
[2024-05-16] MEDS: MULTIVIT/MIN/PREN/FOL AC/IRON TABLET 1 TAB PO (08:02)
[2024-05-16] MEDS: DOCUSATE SODIUM 100 MG CAPSULE PO (08:02)
[2024-05-16] MEDS: DIBUCAINE 1% OINTMENT 30 GM TUBE 1 APPLIC TOPICAL (08:11)
--- NOTE | 2024-05-16 08:52 | P.PNOB_ITS ---
OB - PN: Subj Subjective Date/time seen: 05/16/24 08:52 Interval history: No complaints, comfortable, reassuring heart tones, 7 cm. Epidural Patient comments: no complaints, pain well controlled, incisional pain, tolerating diet and flatus present OB - PN: Obj Data Labs 05/16/24 05:20 Labs: Laboratory Results - last 24 hr 05/16/24 05:20 Hgb 10.2 L Hct 31.0 L OB - PN A/P Plan day: 1 Plan: routine care Comments: No problems, routine care Time Spent With Patient Time: Total time spent is greater than 50% in coordination of care (as documented) at patient's floor/unit and/or counseling patient: Exam 2 Const: General: comfortable, no acute distress and alert Resp: Effort & Inspection: normal respiratory effort Auscultation: no crackles, no rales and no rhonchi Cardio: Rate: regular rate Heart sounds: no click, no murmurs and no rubs GI: Inspection: non-distended GI Palp: No Tenderness to palpation present (GI) Auscultation: normal bowel sounds Other: Incision - CDI Extrem: General: normal to inspection, no pedal edema and no calf tenderness
--- NOTE | 2024-05-16 09:04 | WPDANLDPN2 ---
Anes-Prog Note L&D Date/Time: 05/16/24 09:04 Comfortable throughout: labor and delivery Neuraxial method: epidural Epidural/Spinal procedure site: clean & non-tender Neuro status: Neuro function grossly intact. Cardiovascular status: normal Respiratory status: normal Airway patency: baseline Mental status: baseline Post-Op hydration status: normal Vital Signs: Last Vital Signs Temp 37.3 C 05/16/24 02:20 Pulse 95 05/16/24 02:20 Resp 16 05/16/24 02:20 BP 115/75 05/16/24 02:20 Pulse Ox 98 05/16/24 02:20 O2 Del Method Room Air 05/15/24 05:38 Pain score (VAS): 1 I/O: Intake & Output 05/15/24 05/16/24 05/16/24 23:59 07:59 15:59 Intake Total 1000 Output Total 550 Balance 1000 -550 Post-procedural complaints: none Patient feedback: Patient satisfied with anesthetic care.
--- NOTE | 2024-05-16 19:26 | PC.NURSE ---
1250 Introductions were made, then consulted with patient to assess needs related to . Mother led the conversation with her?plans to feed?her and the?experience so far. Per mother she plans on exclusively and it is going well so far, she is able to breastfeed without any pain. Mother just fed baby about 30 mins ago, RN encouraged mother to call with next feed for RN to assess latch. Encouraged understanding of the benefits of skin to skin (demonstrating unwrapping infant and placing upright on her chest), stimulating with massage touch, changing positions to encourage wakefulness, how to watch for early feeding cues, responsive feeding, feeding on demand (aiming for 8-12 times in 24 hours, about every 2-3 hours), milk production, building/maintaining a milk supply, duration of feeding, signs of adequate intake/output and how to record on the feeding sheet. Resources used for education were facilitated with the [visual educational handouts/ tool/mom and baby guide], Inpatient/outpatient resources provided with business card, feeding sheet, name written on the communication board, and the mom/baby guide. Parents voiced understanding of information, demonstrated learning and will call if there is a request for assistance. Reported to the Primary RN. 1820 Mother called out for latch assessment, she works well with her infant. Reviewed positioning and ear, shoulder, hip alignment, supporting the breast to facilitate a deep latch, asymmetrical latch (off-center), leading with the chin with a big, open, wide gape and body close to mother. latched optimally to the [right] breast in [cross cradle] position. Education given to the mother of how to visualize the suckling (with good rocking jaw motion), swallows (dropping of the lower jaw) and how to listen for drinking at the breast (the ka sound). was [able] to maintain latch without pain to mother protecting the nipple with optimal positioning and latching. Reviewed comfort measures of healing with a warm, wet washcloth to rinse breast, then leave open to air-dry, good handwashing when or touching the breast/nipples to prevent infection. Mother voiced understanding of skin to skin, stimulating with massage touch, responsive feedings, hand expressed colostrum, talking to to encourage if it has been 2 -2.5 hours since the start of the last , to call if does not latch, or if there is discomfort with . Parents voiced understanding of information, demonstrated learning and will call if there is a request for assistance. Reported to the Primary RN.
[2024-05-17 08:00] VITALS: BP 130/76; PULSE 80; RESP 16; TEMP 36.7; O2SAT 98
--- NOTE | 2024-05-17 08:42 | P.PNOB_ITS ---
OB - PN: Subj Subjective Date/time seen: 05/17/24 08:42 Interval history: No complaints, comfortable, reassuring heart tones, 7 cm. Epidural Patient comments: no complaints, pain well controlled and tolerating diet OB - PN: Obj Data Labs 05/16/24 05:20 OB - PN A/P Plan day: 2 Plan: routine care and discharge home Time Spent With Patient Time: Total time spent is greater than 50% in coordination of care (as documented) at patient's floor/unit and/or counseling patient: Exam 2 Const: General: comfortable and no acute distress Resp: Effort & Inspection: normal respiratory effort Auscultation: no rales, no rhonchi and no wheezes Cardio: Rate: regular rate Heart sounds: no click, no murmurs and no rubs GI: GI Palp: Yes Soft to palpation and No Tenderness to palpation present (GI) Auscultation: normal bowel sounds Extrem: General: normal to inspection, no pedal edema and no calf tenderness
--- NOTE | 2024-05-17 08:43 | PM.OBDSVD ---
DS: Admitting Diagnosis Discharge Date May 17, 2024 Admitting Diagnosis Term DS: Discharge Diagnosis Discharge Diagnosis (1) Term delivered: Code(s): O80 - Encounter for full-term uncomplicated delivery Status: Acute OB - DS: Summary OB Procedures : None OB Procedures Intrapartum: Spontaneous Vag Delivery OB Procedures: : None Peripartum Data Laceration Description: Perineal - 2nd Degree Episiotomy description: None Time Spent with Patient Time attestation: Total time spent providing and/or coordinating discharge services: Discharge Plan Discharge Attending physician on discharge: Binu Singh Discharging Clinician: Binu Singh Patient Disposition: Home, Self-Care Activity: pelvic rest Diet: regular Patient Instructions: Antibiotic Form Patient Language: Kiswahili Stand Alone Forms: General Discharge Information Follow-up/Referrals: Binu Singh MD [Physician] - Discharge Medications: Continued PNV no.[id number] acid [id number] mg-mcg Tablet 1 tablet PO DAILY Date of admission: 05/15/24 04:51 Primary Care Provider: UNKNOWN,DOCTOR Admitting Provider: Binu Singh Attending physician on admission: Gabrielle Harden Condition: Stable
--- NOTE | 2024-05-17 11:45 | PC.NURSE ---
Consulted with mother concerning needs and she shared her ability to independently latch infant optimally without pain. Mother is feeding appropriately for growth of and understands stimulating to eat if needed. Infant has had appropriate feedings in the last 24 hours meets the outcomes for weight, output, blood sugar and jaundice at this time. Reinforced signs of adequate intake, transition of stool, prevention/relief of engorgement, plugged ducts, mastitis, community resources (patient has a breast pump at home), and when to call a provider using the resource of the feeding sheet along with the mom and baby guide. Mother voiced understanding of the information shared, is confident to continue effectively her infant at home, when to call for assistance, denies any additional assistance or education at this time. Reported to the Primary RN.
[2024-05-17] MEDS: DOCUSATE SODIUM 100 MG CAPSULE PO (11:55)
[2024-05-17] MEDS: MULTIVIT/MIN/PREN/FOL AC/IRON TABLET 1 TAB PO (11:55)
--- NOTE | 2024-05-17 14:47 | PC.NURSE ---
Patient viewed the discharge video Mother & Baby Care, The First Two Weeks . Patient was given the opportunity and encouraged to ask questions. Patient verbalized understanding of information shared and has been given the mother/baby guide for home reference.
[2024-05-17] MEDS: INFLUENZA TRIVALENT VACCINE 45 MCG/0.5 ML SYRINGE IM (14:51)
[2024-05-19 11:25] VITALS: BP 122/85; PULSE 72; RESP 18; TEMP 36.8; O2SAT 98
== END 2024-05-17 17:15 | disposition home or self-care (01) | DRG 560 ==
LOC: ANHOB2 05-17 08:44 → ANHLDR 05-20 06:17 → ANHOB2 05-20 06:17
PROVIDERS: Admitting Provider Obstetrics & Gynecology; Visit Provider Obstetrics & Gynecology
DX: O70.1 Second degree perineal laceration during delivery (principal); Z37.0 Single live birth; Z3A.39 39 weeks gestation of pregnancy; Z23 Encounter for immunization
CPT/HCPCS: 36415; 85014; 85018; 85025; 86593; 86703; 86850; 86900; 86901; 90471; 90656; A9270; G0008; G0432; J0290; J1200; J2405; J2590; J2795; J7120